=== PATIENT | female | born 1955 | race Caucasian/White ===

== ENCOUNTER 2024-12-04 10:59 | Outpatient (CLI) | payer MEDICARE, SELFPAY ==
--- NOTE | ~2024-12-04 | CT_ITS ---
EXAMINATION: CT LE LT wo con DATE: 12/04/2024 11:44 INDICATION: Unilateral primary osteoarthritis, left knee. TECHNIQUE: Computed tomography (CT) of the left lower limb was performed without intravenous contrast . Automated exposure control and iterative reconstruction technique were employed. The dose-length pr oduct was 1834.25 mGy-cm. COMPARISON: Left knee radiograph 11/19/24 FINDINGS: Alignment is normal. No fracture. There is mild left hip osteoarthritis. Left knee demonstr ates severe osteoarthritis of medial compartment and mild osteoarthritis of the lateral and patellofe moral compartments. There is a small knee joint effusion. IMPRESSION: 1. Severe left knee osteoarthritis. 2. Small left knee joint effusion. Reviewed, dictated and finalized at location A. STIGATIONS CHIEF
--- OUTSIDE RECORDS SUMMARY | 2024-12-04 11:03 | XMS_ITS ---
Author Name Joya Burgos Address [address], [place] [id number] [facility] Address [address], [place] [id number] Care Team Providers Care In [place] [employer] Name Role Phone Joya Burgos Primary Care Physician Tiago Cannon Unavailable Unavailable Joya Burgos Preferred Provider Unavailable Allergies and Adverse Reactions Name Reaction Notes NO KNOWN DRUG ALLERGIES Medications Active Name Start Date Estimated Comple tion Date SIG Comments multivitamin Oral Tablet jorge e 1 tablet by oral route once daily with food losartan 50 mg oral tablet t carl 1 tablet (50 mg) by oral route once daily hydrochlorothiazide 25 mg oral tablet magnesium 200 mg oral tablet vitamin U05-[id number] acid 500-400 mcg oral tablet Celebrex oral Name Start Date Expiration Date SIG Comments Contrave 8-90 mg oral tablet extended release take 2 tablets b y oral route 2 times per day in the morning and evening Prempro oral tablet 0.3-1.5 mg 07/24/2022 06/25/2023 Take 1 tablet by piper th once daily Discontinued Name Start Date Discontinued Date SIG Comment s Menostar 14 mcg/24 hr transdermal patch weekly 05/11/2015 apply 1 patch t o the lower abdomen area by transdermal route every 7 days Vitamin D3 5,000 unit oral tablet 07/14/2020 take 1 tablet by ora l route daily potassium 99 mg oral tablet 07/14/2020 Problem List Not available. Vital Signs Date Time BP-Sys(mm[Hg] BP-Lauryn(mm[Hg]) HR(bpm) RR(rpm) Temp WT HT HC BMI BSA BMI Percentile O2 Sat(%) 2021 10:24 :00 AM 126 mm[Hg] 74 mm[Hg] 206 lbs 65 in 34.2 798 kg/m 2 2.07 01 m2 08/08 9:38: 00 AM 142 mm[Hg] 76 mm[Hg] 199 lbs 65. 5 in 32.6 1 kg/m 2 2.04 m2 2020 9:59: 00 AM 124 mm[Hg] 68 mm[Hg] 199 lbs 65. 5 in 32.6 114 kg/m 2 2.04 24 m2 2019 8:56: 00 AM 148 mm[Hg] 78 mm[Hg] 198 lbs 65. 5 in 32.4 5 kg/m 2 2.04 m2 2019 1:25: 00 PM 128 mm[Hg] 74 mm[Hg] 200 lbs 65. 5 in 32.7 752 kg/m 2 2.04 76 m2 020 9:51: 00 AM 128 mm[Hg] 78 mm[Hg] 198 lbs 65. 5 in 32.4 5 kg/m 2 2.04 m2 2018 9:46: 00 AM 142 mm[Hg] 70 mm[Hg] 202 lbs 65. 5 in 33.1 03 kg/m 2 2.05 78 m2 2017 10:37 :00 AM 124 mm[Hg] 80 mm[Hg] 195 lbs 65. 5 in 31.9 6 kg/m 2 2.02 m2 2016 9:20: 00 AM 126 mm[Hg] 78 mm[Hg] 182 lbs 65. 5 in 29.8 255 kg/m 2 1.95 32 m2 2016 9:50: 00 AM 128 mm[Hg] 80 mm[Hg] 180 lbs 65. 5 in 29.5 0 kg/m 2 1.94 m2 2016 3:27: 00 PM 122 mm[Hg] 76 mm[Hg] 180 lbs 65. 5 in 29.4 977 kg/m 2 1.94 25 m2 2016 11:26 :00 AM 140 mm[Hg] 78 mm[Hg] 179 lbs 65. 5 in 29.3 3 kg/m 2 1.94 m2 016 10:22 :00 AM 130 mm[Hg] 80 mm[Hg] 187 lbs 65. 5 in 30.6 448 kg/m 2 1.97 99 m2 2014 10:32 :00 AM 148 mm[Hg] 82 mm[Hg] 191 lbs 015 1:35: 00 PM 118 mm[Hg] 84 mm[Hg] 193 lbs 65. 5 in 31.6 3 kg/m 2 2.01 14 m2 08/08 9:03: 00 AM 132 mm[Hg] 76 mm[Hg] 187 lbs 66 in 30.1 823 kg/m 2 1.99 m2 Social History Name Description Comments Alcohol Current some day rarely Caffeine Current some day occ Homemaker Heavy Amount of Exercise (4 or more times weekly ) Some college Tobacco Never smoker Denies alcohol abuse Denies drug use Denies illicit substance abuse No History Of MRSA No known infection risk Denies knowledge of exposure to hazardous substa nces Denies physical abuse by spouse/partner Denies emotional abuse by spouse/partner Don Did not serve History of Procedures Date Ordered Description Order Status 07/14/2020 12:00 AM MAMMOGRAM SCREENING Reviewed 07/16/2021 12:00 AM MAMMOGRAM SCREENING Reviewed 07/30/2021 12:00 AM DXA BONE DENSITY AXIAL Revie wed 08/02/2021 12:00 AM ASSAY OF PARATHORMONE Review ed 08/02/2021 12:00 AM VITAMIN D 25 HYDROXY Reviewe d 08/02/2021 12:00 AM ASSAY OF CALCIUM Reviewed 11/07/2021 12:00 AM VITAMIN D 25 HYDROXY Reviewed 09/11/2022 12:00 AM ULTRASOUND BREAST COMPLETE R eviewed 10/04/2013 11:55 AM SCREEN MAMMO DOC REV Reviewe d 02/28/2023 12:00 AM MRI BOTH BREASTS Reviewed 08/08/2011 12:00 AM CYTP C/V AUTO THIN LYR PREPJ SCR SYS PHYS Reviewed 10/07/2014 12:00 AM MAMMOGRAM SCREENING Reviewed 08/08/2011 12:00 AM ASSAY TEST FOR BLOOD FECAL R eviewed 05/11/2015 11:17 AM ASSAY TEST FOR BLOOD FECAL Re viewed 05/11/2015 12:00 AM Pap with HPV EOGA Reviewed 05/11/2015 12:00 AM CYTOPATH C/V AUTO FLUID REDO Reviewed 08/29/2011 3:56 PM SCREEN MAMMO DOC REV Reviewed 05/13/2016 12:00 AM ASSAY TEST FOR BLOOD FECAL Rev iewed 05/13/2016 12:00 AM CYTOPATH C/V AUTO FLUID REDO R eviewed 05/13/2016 12:00 AM HPV HIGH-RISK TYPES Reviewed 05/13/2016 12:00 AM HPV TYPES 16 & 18 ONLY Reviewe d 05/13/2016 11:00 AM ASSAY TEST FOR BLOOD FECAL Rev iewed 06/24/2016 12:00 AM MAMMOGRAM SCREENING Reviewed 09/01/2012 12:05 PM SCREEN MAMMO DOC REV Reviewe d 03/28/2017 12:00 AM Pessary EOGA Reviewed 03/28/2017 12:00 AM INSERT PESSARY/OTHER DEVICE R eviewed 07/04/2017 12:00 AM CYTOPATH C/V AUTO FLUID REDO Reviewed 07/04/2017 12:00 AM HPV HIGH-RISK TYPES Reviewed 07/04/2017 12:00 AM HPV TYPES 16 & 18 ONLY Review ed 07/04/2017 12:00 AM MAMMOGRAM SCREENING Reviewed 07/09/2017 12:00 AM ULTRASOUND BREAST COMPLETE Re viewed 07/10/2018 12:00 AM ASSAY TEST FOR BLOOD FECAL Re viewed 07/10/2018 12:00 AM CYTOPATH C/V AUTO FLUID REDO Reviewed 07/10/2018 12:00 AM HPV HIGH-RISK TYPES Reviewed 07/10/2018 12:00 AM HPV TYPES 16 & 18 ONLY Review ed 07/10/2018 12:00 AM MAMMOGRAM SCREENING Reviewed 07/12/2019 12:00 AM ASSAY TEST FOR BLOOD FECAL Re viewed 07/12/2019 12:00 AM CYTOPATH C/V AUTO FLUID REDO Reviewed 07/12/2019 12:00 AM HPV HIGH-RISK TYPES Reviewed 07/12/2019 12:00 AM HPV TYPES 16 & 18 ONLY Review ed 07/13/2019 12:00 AM MAMMOGRAM SCREENING Reviewed 01/18/2020 12:00 AM MAMMOGRAM SCREENING Reviewed 01/18/2020 12:00 AM MAMMO DIGITAL DIAGNOSTIC LEFT Reviewed 01/18/2020 12:00 AM Left breast ultrasound Reviewe d Results Summary Date and Description Results 05/11/2015 11:17 AM Hemoccult Stl Ql Neg ative 05/11/2015 12:41 PM LMP: NONE GIVENPREV. PAP: 08/08/2011PREV. BX: NONE GIVENHPV mRNA E6/E7 Not Detected 05/13/2016 11:00 AM Hemoccult Stl Ql Neg ative 05/13/2016 11:53 AM CLINICAL INFORMATION : NORMAL HXLMP: NONE GIVENPREV. PAP: 05/11/2015PREV. BX: NONE GIVENHPV mRNA E6/E7 Not Detected 07/04/2017 12:00 AM LMP: NONE GIVENPREV. PAP: [id number]. BX: NONE GIVENHPV mRNA E6/E7 Not Detected 07/10/2018 12:27 PM LMP: NONE GIVENPREV. PAP: 07/04/17PREV. BX: NONE GIVENHPV mRNA E6/E7 Not Detected 07/12/2019 10:20 AM LMP: NONE GIVENPREV. PAP: [id number]. BX: NONE GIVENHPV mRNA E6/E7 Not Detected History of Past Illness Name Date of Onset Comments Pap Smear 07/12/19 Normal -HPV rpt cotesting 5yrs Mammogram Screening 07/19/22 normal Fibrocystic changes of the breast 2002 2007 General medical examination; routine general medical examination at a health care facility Aug 08 2011 9:14AM Routine gynecological examination Aug 08 2011 9: 14AM Pap Smear Aug 08 2011 9:14AM Nevus, Non-neoplastic Aug 08 2011 9:14AM Mammogram Screening Aug 29 2011 3:56PM Mammogram Screening Sep 01 2012 12:05PM COVID-19 vaccine series completed 2020 Osteopenia 07/30/21 Mammogram Screening Oct 04 2013 11:55AM Breast Cancer Mammogram Screening Oct 07 2014 4:02PM Cystocele, midline Apr 20 2015 1:46PM Rectocele Apr 20 2015 1:46PM Uterovaginal Prolapse, Incomplete Apr 20 2015 1:4 6PM Well woman exam with routine gynecological exam May 11 2015 10:47AM Cervical cancer screening May 11 2015 10:47AM Menopausal syndrome May 11 2015 10:47AM Well woman exam with routine gynecological exam May 13 2016 10:33AM Cervical cancer screening May 13 2016 10:33AM Colon cancer screening May 13 2016 10:33AM Screening for rectal cancer May 13 2016 10:33AM Screening for HPV (human papillomavirus) May 13 2016 10:33AM Obesity (BMI 30-39.9) May 13 2016 10:33AM Uterine prolapse May 13 2016 10:33AM Mammogram Screening Jun 24 2016 11:17AM Uterovaginal prolapse Mar 27 2017 11:33AM Uterovaginal prolapse Mar 28 2017 3:27PM Pessary maintenance Apr 11 2017 9:55AM Well woman exam with routine gynecological exam Jul 04 2017 9:38AM Cervical cancer screening Jul 04 2017 9:38AM Screening for HPV (human papillomavirus) Jul 04 2017 9:38AM Overweight Jul 04 2017 9:38AM Mammogram Screening Jul 04 2017 4:18PM Mammogram Screening Jul 09 2017 9:12AM Well woman exam with routine gynecological exam Jul 10 2018 10:44AM Cervical cancer screening Jul 10 2018 10:44AM Screening for rectal cancer Jul 10 2018 10:44AM Screening for HPV (human papillomavirus) Jul 10 2018 10:44AM Obesity (BMI 30-39.9) Jul 10 2018 10:44AM Uterovaginal prolapse Jul 10 2018 10:44AM Menopausal syndrome Jul 10 2018 10:44AM Mammogram Screening Jul 10 2018 12:03PM Well woman exam with routine gynecological exam Jul 12 2019 9:52AM Cervical cancer screening Jul 12 2019 9:52AM Screening for rectal cancer Jul 12 2019 9:52AM Screening for HPV (human papillomavirus) Jul 12 2019 9:52AM Obesity (BMI 30-39.9) Jul 12 2019 9:52AM Hormone replacement therapy Jul 12 2019 9:52AM Cystocele with uterine prolapse Jul 12 2019 9:52 AM Mammogram Screening Jul 13 2019 10:47AM Left breast mass Jan 18 2020 9:57AM Diffuse cystic mastopathy of right breast Mar 23 2020 1:29PM Diffuse cystic mastopathy of left breast Mar 23 2020 1:29PM Well woman exam with routine gynecological exam Jul 14 2020 9:03AM Obesity (BMI 30-39.9) Jul 14 2020 9:03AM Cystocele, midline Jul 14 2020 9:03AM Mammogram Screening Jul 14 2020 3:01PM Well woman exam with routine gynecological exam Jul 16 2021 10:05AM Obesity (BMI 30-39.9) Jul 16 2021 10:05AM Cystocele, midline Jul 16 2021 10:05AM Mammogram Screening Jul 16 2021 1:45PM Screening -Dexa- Osteoporosi s/bone density Jul 30 2021 11:16AM Osteopenia Aug 08 2021 9:42AM Obesity Aug 08 2021 9:42AM Low vitamin D level Aug 08 2021 9:42AM Well woman exam with routine gynecological exam Jul 19 2022 10:31AM Obesity (BMI 30-39.9) Jul 19 2022 10:31AM Left Upper Breast mass in female Jul 19 2022 10:3 1AM Hormone replacement therapy Jul 19 2022 10:31AM Osteopenia Jul 19 2022 10:31AM Left breast lump Sep 11 2022 10:33AM Mammogram Screening Feb 28 2023 9:13AM Payers Insurance Name Company Name Plan Name Plan Number Policy Number Policy Group Number Start Date Medicare B Medicare B [id number] N/A Bcbs Bcbs [id number] N/A Bcbs Bcbs [id number] N/A Cigna Cigna [id number] N/A Aetna Aetna Life [id number] N/A History of Encounters Visit Date Visit Type Provider 07/19/2022 Office Joya Flores 08/08/2021 Office Joya Flores 07/16/2021 Office Joya Flores 07/14/2020 Office Joya Flores 03/23/2020 Office Ellie aj PA-C 01/18/2020 Office Ellie [facility]OD[facility] 07/12/2019 Office Joya Flores 07/10/2018 Office Joya Flores 07/04/2017 Office Joya Flores 04/11/2017 Office Joya Flores 03/28/2017 Office Joya Flores 03/27/2017 Office Joya Flores 05/13/2016 Office Joya Flores 05/11/2015 Office Joya Flores 04/20/2015 Office Joya Flores 08/08/2011 Office Jessica Dorman PA-C 08/06/[address] Tequila capps MD
--- OUTSIDE RECORDS SUMMARY | 2024-12-04 11:03 | XMS_ITS | Data Portability ---
Author Organization [facility], EFF_Historical Results Address [address] [place] [address] Assessment No assessment recorded. Plan of Treatment Reminders Order Date Submit Date Provider Last Modified By Organization Details Last Modified Time Details Appointments None recorded. Lab noninvasive colorectal cancer DNA + occult blood screening, QL, stool 2023 024 [facility] (Cologuard Orders Only), [address], [address], [place], [address], 18:27:00 Referral None recorded. Procedures None recorded. Surgeries None recorded. Imaging None recorded. Medication Orders None recorded. Patient TargetsNo targets recorded. Patient InstructionsNo instructions recorded. Reason for Referral None Reported. Results Created Date Observation Date Name Description Value Unit Range Abnormal Flag Note LastModifiedBy Organization Detail LastModifiedTime Result Notes None recorded. Procedures Surgical History Date Name Laterality Status Provider Name and Address Organization Details Recorded Time 05/19/20 24 Date of Last Mammogram completed Brianne Terry [facility] 05/19/2024 15:17:09 05/13/20 23 lumpectomy of right breast completed [facility] 07/23/2024 09:53:26 07/30/20 21 dual energy X-ray absorptiometry completed [facility] 07/20/2024 11:56:06 07/12/20 19 Date of Last Pap Smear completed [facility] 07/20/2024 12:19:03 10/13/19 10 Colonoscopy completed [facility] 07/20/2024 11:55:32 Imaging Results None recorded. Procedure Notes None recorded. Medical Equipment None Reported. Allergies No known drug allergies Medications Name Sig Start Date Stop Date Status Note LastModified by Organization Details LastModified Time celecoxib 200 mg capsule active Not Available Not Available N ot Available hydrocodone 5 mg-acetaminop hen 325 mg tablet active Not Available Not Available Not Available prednisone 20 mg tablet 07/22 completed Not Available Not Available Not Available amlodipine 5 mg tablet active Not Available Not Available No t Available tramadol 50 mg tablet 07/22 completed Not Available Not Available Not Available exemestane 25 mg tablet 07/22 completed Not Available Not Available Not Available Fosamax 70 mg tablet Take 1 tablet every week by oral route. active Not Available Not Available No t Available hydrochloroth iazide 25 mg tablet active Not Available Not Available Not Available losartan 100 mg tablet active Not Available Not Available No t Available mometasone 0.1 % topical cream 07/22 completed Not Available Not Available Not Available amoxicillin 875 mg-potassium clavulanate 125 mg tablet 07/22 completed Not Available Not Available Not Available cyclobenzapri ne 5 mg tablet active Not Available Not Available Not Available tamoxifen active Not Available Not Lexy ilable Not Available levocetirizin e 5 mg tablet 07/22 completed Not Available Not Available Not Available calcium 1,000 mg (as carbonate)-vi tamin D3 20 mcg (800 unit) tablet Take by oral route. active Not Available Not Available No t Available Vitals Date Recorded Body height Body mass index (BMI) Body weight Systolic blood pressure Diastolic blood pressure Provider Name and Address Organization Details Last Updated DateTime 07/23/2024 165.1 cm 35.8 kg/m2 75548.36 g 122 mm[Hg] 78 mm[Hg] Jonathan Mccon[facility] 09:49:30 Social History Question Answer Notes LastModified by Organizat ion Details LastModified Time Tobacco Smoking Status Never Smoker Jonathan [facility] 07/20/2024 11:56:36 What Is Your Level Of Alcohol Consumption? Occasional [email or web address] Information not available 07/20/2024 What Is Your Level Of Caffeine Consumption? Occasional [email or web address] Information not available 07/20/2024 Are You Currently Employed? No [email or web address] Information not available 07/23/2024 What Type Of Diet Are You Following? REGULAR [email or web address] Information not available 07/23/2024 What Is Your Occupation? Retired [email or web address] Information not available 07/23/2024 Have There Been Any Changes To Your Family Or Social Situation? No [email or web address] Information no t available 07/23/2024 What Is The Highest Level Of School You Have Completed Or The Highest Degree You Have Received? Some College [email or web address] Information not available 07/20/2024 How Do You Identify Yourself? Heterosexual [email or web address] Information not available 07/23/2024 What Is Your Ethnicity? Information not available 07/23/2024 What Is Your Relationship Status? [email or web address] Information not available 07/20/2024 Are There Any Smokers In Your House? No [email or web address] Information not available 07/23/2024 Do You Use Any Illicit Or Recreational Drugs? No [email or web address] Information not available 07/20/2024 Do You Or Have You Ever Used Any Other Forms Of Tobacco Or Nicotine? No [email or web address] Information not available 07/20/2024 Sex: Female Functional Status Question Answer Note LastModified by Organization D etails LastModified Time What is your exercise level? Heavy Information not available 07/20/2024 Mental Status None recorded. Family History Relationship Description Onset Age of this Age Resolved Age Notes LastModified by Organization Details LastModified Time Sister Family history of breast cancer [email or web address] Not available 07/20 11:57:59 Maternal Aunt Family history of breast cancer [email or web address] Not available 07/20 11:57:59 Father Family history of diabetes mellitus [email or web address] Not available 07/20 11:58:23 Father Family history of coronary arterioscler osis [email or web address] Not available 07/20 12:01:14 Medical History Condition Response Allergies (Food, seasonal, environmental ) N Other Y Thyroid Disease N Blood Transfusion N Cancer Breast Y Lung Disease N Depression N Gestational Diabetes N Anxiety Disorder N Cancer Other N Arthritis N Acid Reflux (GERD) N Stroke N Endometriosis N High Cholesterol N Neurologic Disorder N Liver Disease N Fibromyalgia N Deep Vein Thrombosis (DVT) or Pulmonary Embolism (PE) N Kidney Disease N Autoimmune Disease N Cancer Endometrial N Migraines N GI Problems N Hematologic (Blood) Disorder N Eating Disorder N Anemia N Psychiatric Disorder N Thrombophilia N Cancer Colon N Diabetes N Cancer Uterine N Asthma N Polycystic Ovary Syndrome (PCOS) N Defects N Cancer Ovarian N Heart Disease N Hypertension N Osteoporosis N Gynecological History Statement/Question Response Abnormal Pap N If Post Menopausal, Age at Menopause 54 Date of Last Colonoscopy Date of Last Mammogram 05/19/2024 Sexually Active? Y Post Menopausal Bleeding N STIs/STDs N HPV Vaccine N Date of Last Pap Smear 07/12/2019 Current Control Method Partner Vas ectomy Date of Last DEXA 07/30/2021 Hormone Replacement Therapy N Obstetrics History GPAL:G 2 P 2 0 0 2 Type Value Full Term 2 Living 2 Total 2 Past Encounters Encounter ID Performer Location Encounter Start Date Encounter Closed Date Diagnosis/Indication Diagnosis SNOMED-CT Code Diagnosis ICD10 Code Diagnosis Note [id number] EITAN GUTIERREZ MD [facility] [address] [place] [address] 07/23/2024 09:37:41 07/23/2024 10:56:14 Screening for malignant neoplasm of colon 637503196 Z12.11 Routine gy necologic examination done 0491677091 9101 Z01.419 no medicine aide bleedingno oral HRT since contraindi catedpap not needed 2/2 age/hx and doesn't meet high risk criteriaPC P: Dr. Chely butcher routine exam w/pcpvacci mercedes: s/p covid with one booster, s/p flu and shingles, considerin g pneumonia and RSV vaccinesso cial: to Don; no D.Vl, homemaker, two grown childrenre commend monthly SBEs: does dorecommen d yearly mammogram: done 4decl sha rectalcolo noscopy: done in 2009 and will now do cologuard; order sentno smoking/va ping/THC/n or illicit drugsencou rage adequate calcium/vi t D and weight bearing exerciseen courage sunscreen and seatbelt use, avoid tanning bedsencour age weight loss with healthy diet and exerciseRT C: in two years or sooner prn. History of malignant neoplasm of breast 077964184 Z85.3 lump found on previous annual exam. S/P lumpectomy on right with radiation. Now seeing Dr. Moyer. previous medication had ill side effects so he started her on tamoxifen yesterday. . Mammogram done this May was wnl Osteopenia [id number] M85 .80 Dr. Moyer is performing DEXA scans and has her on fosfamax. She is taking calcium and vit. D. Also, encourage weight bearing exercise. Family his tory of breast cancer 639799383 Z80.3 pt's sister and maternal aunt have breast cancer; Pt. has been tested for genetic component to her breast cancer and testing was negative. Obese class II [id number] 1 46746 E66.812 has gained 9# since last visit; mobility limited by bone on bone in her knee; she gets injections in her kneeencour aged weight loss with healthy diet and exercisept . may address weight loss drugs with her pcp Cystocele 789197268 N81. 10 pt. states it is asymptomat ic and declines interventi on Skin lesion 77709772 L98 .9 patient has multiple benign appearing skin lesions predominan tly over her trunk; she sees derm every 6 months. Health Concerns Section Related Observation LastModified by Organization Detai ls LastModified Time None Recorded Concern Status LastModified by Organization Details LastModified Time None Recorded Advance Directives Directive None Recorded Payers Encounter Date Sequence Insurance Name Policy Number Policy Tran Covered Member ID Tran Member ID Guarantor Name 07/23/2024 2 [place] [id number] Ana Lilia Beckham [id number] Ana Lilia Beckham 07/23/2024 1 [place] Ana Lilia Beckham [id number] Ana Lilia Beckham Notes Date Note Type Note Provider Name and Address Organization Details Recorded Time 07/23/2024 text/html Annual GYNReported bypatient.History :obstetric history: G2 T__ P__ A__ L__ (2); date of last Pap test (07/12/2019 normal/-HR HPV); family history of cancer (breast-Maternal Aunt, sister, and Patient) Urinary symptoms:Postmeno pausal Vulva:no genital lesion Vagina:normal vaginal discharge Breast:no breast pain; no breast lump; no nipple discharge Current Contraception:jaxon crawford had vasectomy Sexual complaints:no sexual complaints; no pain during intercourse; normal libido Menopausal Symptoms:no menopausal symptoms; normal vaginal lubrication Psychological symptoms:no depression; no anxiety; no PMDD Onset of sexual activity before age 16? {{Yes No*}} Five or more sexual partners in lifetime? {{Yes No*}} History of STI (including HPV)? {{Yes No*}} Have had 3 or more abnormal paps in the past 7 years: {{Yes No*}} Mother took SHILA(diethylstilbe strol ) during with her? {{Yes No*}} If answering yes to any questions use the code Z91.89 (high risk for cervical cancer) and continue to screen with annual pap EITAN GUTIERREZ MD [address] [place] [address], [phone], [facility] 07/23/2024 10:38:10 OBGyn Episode Ob Episode Information Episode Created Date Number of Fetuses Patient Bloodtype Patient rh Status Prepregnancy Weight lbs Domestic Partner Domestic Partner Phone Father Name Vp Design Status 07/20/20 24 1 CLOSED Fetus Data First Name Last Name Admitted to NICU Weight (g) Sex Living Outcome Pediatric Complications Fetus ID Race Codes Race Delivery Type 22991.3 11881 M Full Term [id number] Vaginal Yamil Calculation Initial Yamil Date Initial Exam Date Initial Exam Provider Initial Ultrasound Date Last Menstrual Period Date Ultra Sound Weeks Gestation 0 Eighteen To Twenty Week Yamil Update Ultra Sound Date Fundal Height At Umbil Quickening Date Ultra Sound Latest Weeks Gestation Final Yamil Confirmed By Final Yamil Confirmed Date Final Yamil Date Ultra Sound Latest Days Gestation 0 0 Menstrual History Last Menstrual Date Menses Monthly On Bcp Conception Prior Menses Frequency Hcg Plus Date Menarche Onset Age Delivery Information Delivery Date Delivery Type Labor Anesthesia Weeks Gestation Incision Type Labor Labor Length Hrs Delivered By Post Complications Tubal Sterilization Discharge Date Comments 4 Regional- idural 40 false Discharge Information Feeding Method Contraceptive Method Maternal HG B and HCT Levels Ob Episode Information Episode Created Date Number of Fetuses Patient Bloodtype Patient rh Status Prepregnancy Weight lbs Domestic Partner Domestic Partner Phone Father Name Vp Design Status 07/20/20 24 1 CLOSED Fetus Data First Name Last Name Admitted to NICU Weight (g) Sex Living Outcome Pediatric Complications Fetus ID Race Codes Race Delivery Type 4139.02 7 M Full Term [id number] Vaginal Yamil Calculation Initial Yamil Date Initial Exam Date Initial Exam Provider Initial Ultrasound Date Last Menstrual Period Date Ultra Sound Weeks Gestation 0 Eighteen To Twenty Week Yamil Update Ultra Sound Date Fundal Height At Umbil Quickening Date Ultra Sound Latest Weeks Gestation Final Yamil Confirmed By Final Yamil Confirmed Date Final Yamil Date Ultra Sound Latest Days Gestation 0 0 Menstrual History Last Menstrual Date Menses Monthly On Bcp Conception Prior Menses Frequency Hcg Plus Date Menarche Onset Age Delivery Information Delivery Date Delivery Type Labor Anesthesia Weeks Gestation Incision Type Labor Labor Length Hrs Delivered By Post Complications Tubal Sterilization Discharge Date Comments 8 Regional- idural 40 false [place] Discharge Information Feeding Method Contraceptive Method Maternal HG B and HCT Levels
--- OUTSIDE RECORDS SUMMARY | 2024-12-04 11:03 | XMS_ITS | Clinical Summary ---
Author Organization [facility] Address [facility] [place] [address] Care Team Providers Care Barking Machine Feeder Name Role Phone Tiago Mason MD Primary Care Provider [phone] Allergies Active Allergy Reactions Criticality Noted Date Comments Levofloxacin Rash Low 05/21/2023 Medications hydroCHLOROthia zide (HYDRODIURIL) 25 MG tabletIndicatio ns:Hypertension Take 1 tablet (25 mg total) by mouth every morning. Indications: High Blood Pressure Disorder 03/18/2023 Active losartan (COZAAR) 100 MG tabletIndicatio ns:Hypertension Take 1 tablet (100 mg total) by mouth daily. Indications: High Blood Pressure Disorder 03/05/2023 Active celecoxib (CELEBREX) 200 MG capsule Take 1 capsule (200 mg total) by mouth daily. Active amLODIPine (NORVASC) 5 MG tabletIndicatio ns:Hypertension Take 1 tablet (5 mg total) by mouth daily. Indications: High Blood Pressure Disorder Active TURMERIC OR Take 1,000 mg by mouth daily. Active vitamin B-12 (CYANOCOBALAMIN ) (CYANOCOBALAMIN ) 1000 mcg tablet Take 1 tablet (1,000 mcg total) by mouth daily. Active Multiple Vitamins-Minera ls (MULTIVITAMIN ADULTS 50+ OR) Take 1 tablet by mouth daily. Active Calcium Carbonate Antacid 600 MG Chew Tab Chew 1 tablet by mouth daily. Active magnesium oxide (MAG-OX) 250 MG tablet Take 1 tablet (250 mg total) by mouth daily. Active Cholecalciferol (VITAMIN D3) 50 MCG (2000 UT) Cap Take 1 capsule by mouth daily. Active acetaminophen (TYLENOL) 325 MG tablet Take 2 tablets (650 mg total) by mouth every 4 (four) hours as needed for Pain. For Mild Pain or Fever 05/29/2023 Active Active Problems Problem Noted Date Diagnosed Date Invasive lobular carcinoma o f breast in female (CMS/HCC HHS/HCC) 07/09/2023 Abnormal magnetic resonance imaging of right alycia ast 05/01/2023 Family History Medical History Relation Comments Prostate Cancer Brother COPD Father Heart Disease Father Cancer Maternal Aunt ovarian COPD Mother Cancer Paternal Aunt ?lung Breast Cancer Sister Relation Status Comments Brother Alive Father Maternal Aunt Mother Paternal Aunt Sister Alive Social History Tobacco Use Types Packs/Day Years Used Date Smoking Tobacco: Never Smokeless Tobacco: Never Alcohol Use Standard Drinks/Week Comments Yes 0 (1 standard drink = 0.6 oz pur e alcohol) SOCIAL Comments No Sex and Gender Information Value Date Recorded Sex Assigned at Not on file Legal Sex Female 8:00 PM CDT Gender Identity Not on file Sexual Orientation Not on file Last Filed Vital Signs Vital Sign Reading Time Taken Comments Blood Pressure 139/75 07/09/2023 8:21 AM CDT Pulse 76 07/09/2023 8:21 AM CDT Temperature 36.8 C (98.2 F) 07/09/2023 8:21 AM CDT Respiratory Rate 16 05/29/2023 1:36 PM CDT Oxygen Saturation 99% 07/09/2023 8:21 AM CDT Inhaled Oxygen Concentration - - Weight 92.8 kg (204 lb 9.4 oz) 05/29/2023 6:59 A M CDT Height 167.6 cm (5' 6 ) 05/23/2023 8:33 AM CDT Body Mass Index 33.02 05/23/2023 8:33 AM CDT Plan of Treatment Upcoming Encounters Date Type Department Care Team (Late st Contact Info) Description 05/19/2025 9:15 AM CDT Appointment [facility] [address] [place] [address] Tiago Mason MD [address] [place], [place] [id number] Health Maintenance Due Date Last Done Comments Colorectal Cancer Screening Colonoscopy (10 Years) 1955 Hepatitis C 1974 DTaP, Tdap and Td Vaccines (1 - Tdap) 1975 Annual Medicare Wellness Visit 2021 Pneumococcal Vaccine: 65+ Years (1 of 1 - PCV) 2021 COVID-19 Vaccine (1 - season) 2024 Influenza Adult (#1) 2024 08/13/2021, 07/27/2019, 07/28/2018 Mammogram Screening 05/19/2026 05/19/2024, 03/27/2023, 07/19/2022, Additional history exists RSV Immunization or 60+ Years (1 - 1-dose 75+ series) 2031 Zoster Vaccines Completed 05/13/2018, 02/24/2018 Dexa Scan (General) Completed 08/01/2023, 08/01/2023, 07/30/2021 Meningococcal B Vaccine Aged Out No l onger eligible based on patient's age to complete this topic Meningococcal Vaccine Aged Out No ronny shelly eligible based on patient's age to complete this topic RSV Immunizations Under 20 Months Aged Out No longer eligible based on patient's age to complete this topic Procedures Procedure Name Priority Date/Time Associated Diagnosis Comments MG SCREENING W POLO DANG DIGI Routine 05/19/2024 8:22 AM CDT Visit for screening mammogram BONE DENSITY/DEXA Routine 08/01/2023 10: 10 AM CDT Post-menopause Osteopenia determined by x-ray from Last 3 Months or Most Recently Relevant to Health Maintenance Results * MG SCREENING W POLO DANG DIGI (05/19/2024 8:22 AM CDT) Anatomical Region Laterality Modality Breast Bilateral Mammography 05/19/2024 12:5 2 PM CDT Impressions 05/19/2024 12:54 PM CDT IMPRESSION: No suspicious mammographic findings. Recommendation: 1. Routine Screening, Bilateral Assessment: ACR BI-RADS 2 - BENIGN FINDING(S) Ordered By: JOYA BURGOS Interpreted By: Sergey Esparza MD, 05/19/2024 12:52 PM Narrative 05/19/2024 12:54 PM CDT Examination: Screening bilateral mammogram Exam Date: 05/19/2024 8:22 AM Clinical history: Screening. History of right breast malignancy. Family history of breast malignancy. Comparison: Previous studies performed July 2022. Technique: Digital screening mammography of both breasts was performed. Breast tomosynthesis acquisitions were obtained and reviewed. This study was read with the assistance of a computer-aided detection system. Tissue density: The breast tissue is heterogeneously dense, which may obscure small masses. Findings: No suspicious masses, malignant appearing calcifications, skin thickening or other abnormalities are present. Posttreatment changes in the right breast. There are no new densities. Benign findings with computer-assisted software. Scattered benign calcifications.. Considering the patient's history and the degree of the breast density recommend continued annual imaging surveillance with MRI as supplemental screening in addition to mammogram. us Joya Burgos MD MAMMO Final Result * BONE DENSITY/DEXA (08/01/2023 10:10 AM CDT) Anatomical Region Laterality Modality Bone Bone Density 08/01/2023 10:1 9 AM CDT Impressions 08/01/2023 10:22 AM CDT Impression: BMD measured at both femoral necks and right total hip at WHO category level of osteopenia. BMD measured at left total hip and AP lumbar spine at level of normal. Ordered By: DARRIN MOYER Interpreted By: Harvey Calvillo MD, 08/01/2023 10:19 AM Narrative 08/01/2023 10:22 AM CDT Examination: DEXA Bone densitometry EXAM DATE: 08/01/2023 9:59 AM Clinical history: Postmenopausal. Calcium supplementation. Vitamin D use. History of hormone replacement therapy. Dairy product consumption. Weight-bearing exercise. Technique: DEXA bone minimal density evaluation was performed in the AP projection over the lumbar spine and over both hips in the AP projection utilizing standard imaging techniques. Assessment: The BMD measured at the AP spine L1-L4 is 1.005 g/cm2 with a T-score of -0.4 and a Z-Score of 1.5. Bone density is up to 10% below young normal. This patient is considered normal according to the World Health Organization (WHO) criteria. Fracture risk is low. The BMD measured at the AP lumbar spine has decreased 0.020 g/sq cm since study 07/30/2021. The BMD measured at the femur total left is 0.818 g/cm2 with a T-score of -1.0 and a Z-Score of 0.3. Bone density is up to 10% below young normal. This patient is considered normal according to the World Health Organization (WHO) criteria. Fracture risk is low. The BMD measured at the left total hip has decreased 0.008 g/sq cm since study 07/30/2021. The BMD measured at the left femoral neck is 0.650 g/sq cm resulting in a T score of -1.8 and a Z score of -0.2, values at the WHO category level of osteopenia. The BMD measured at the femur total right is 0.807 g/cm2 with a T-score of -1.1 and aZ-Score of 0.2. The patient is considered osteopenic according to World Health Organization (WHO) criteria. Bone density is between 10 and 25% below young normal. Fracture risk is moderate. Treatment is advised. The BMD measured at the right total hip has increased 0.007 g/sq cm since study 07/30/2021. The BMD measured at the right femoral neck is 0.638 g/sq cm resulting in a T score of -1.9 and a Z score of -0.3, values at the WHO category level of osteopenia. FRAX results: 10 year probability of major osteoporotic fracture 9.9% and of hip fracture 1.4%. Recommendations: All patients should ensure an adequate intake of dietary calcium and vitamin D. The NOF recommend adults under the age of 50 need 1000 mg of calcium and 400-800 IU of vitamin D daily. Effective therapy for the prevention and treatment of osteoporosis include biphosphonates. Follow-up: People with diagnosed cases of osteoporosis or at high risk for fracture should have regular bone mineral density test. For patients eligible for Medicare, routine testing is allowed once every 2 years. Testing frequency can be increased to one year for patients who have rapidly progressing disease, those who are receiving or discontinuing medical therapy to restore bone mass, or have additional risk factors. Based on these results, a followup exam is recommended in no earlier than 2 years for routine follow-up. As early as 1 year to assess efficacy of new medication therapy for treatment of osteoporosis. Procedure Note Harvey Calvillo MD - 08/01/2023 Examination: DEXA Bone densitometry EXAM DATE: 08/01/2023 9:59 AM Clinical history: Postmenopausal. Calcium supplementation. Vitamin D use.History of hormone replacement therapy. Dairy product consumption.Weight-bearing exercise. Technique: DEXA bone minimal density evaluation was performed in the APprojection over the lumbar spine and over both hips in the AP projectionutilizing standard imaging techniques. Assessment: The BMD measured at the AP spine L1-L4 is 1.005 g/cm2 with a T-score of-0.4 and a Z-Score of 1.5. Bone density is up to 10% below youngnormal. This patient is considered normal according to the World HealthOrganization (WHO) criteria. Fracture risk is low. The BMD measured at the AP lumbar spine has decreased 0.020 g/sq cm sincestudy 07/30/2021. The BMD measured at the femur total left is 0.818 g/cm2 with a T-score of-1.0 and a Z-Score of 0.3. Bone density is up to 10% below youngnormal. This patient is considered normal according to the World HealthOrganization (WHO) criteria. Fracture risk is low. The BMD measured at the left total hip has decreased 0.008 g/sq cm sincestudy 07/30/2021. The BMD measured at the left femoral neck is 0.650 g/sq cm resulting in aT score of -1.8 and a Z score of -0.2, values at the WHO category level ofosteopenia. The BMD measured at the femur total right is 0.807 g/cm2 with a T-score of-1.1 and aZ-Score of 0.2. The patient is considered osteopenicaccording to World Health Organization (WHO) criteria. Bone density isbetween 10 and 25% below young normal. Fracture risk is moderate.Treatment is advised. The BMD measured at the right total hip has increased 0.007 g/sq cm sincestudy 07/30/2021. The BMD measured at the right femoral neck is 0.638 g/sq cm resulting in aT score of -1.9 and a Z score of -0.3, values at the WHO category level ofosteopenia. FRAX results: 10 year probability of major osteoporotic fracture 9.9% andof hip fracture 1.4%. Recommendations: All patients should ensure an adequate intake of dietary calcium andvitamin D. The NOF recommend adults under the age of 50 need 1000 mg ofcalcium and 400-800 IU of vitamin D daily. Effective therapy for theprevention and treatment of osteoporosis include biphosphonates. Follow-up: People with diagnosed cases of osteoporosis or at high risk for fractureshould have regular bone mineral density test. For patients eligible forMedicare, routine testing is allowed once every 2 years. Testing frequencycan be increased to one year for patients who have rapidly progressingdisease, those who are receiving or discontinuing medical therapy torestore bone mass, or have additional risk factors. Based on these results, a followup exam is recommended in no earlier than2 years for routine follow-up. As early as 1 year to assess efficacy ofnew medication therapy for treatment of osteoporosis. Impression: BMD measured at both femoral necks and right total hip at WHO categorylevel of osteopenia. BMD measured at left total hip and AP lumbar spine at level of normal. Ordered By: DARRIN MOYER Interpreted By: Harvey Calvillo MD, 08/01/2023 10:19 AM Darrin Moyer MD DEXA Final Result from Last 3 Months or Most Recently Relevant to Health Maintenance Insurance MEDICARE Member Subscriber Plan / Payer (Ef fective 2022-Present) Name:Ana Lilia Beckham Relation to Subscriber:Self Name:Ana Lilia Beckham Payer ID:Not on file Group ID:Not on file Type:Indemnity Address: ATTN CLAIMS [address] [place] [address] [place] [address] MEDICARE [facility] Care Teams Barking Machine Feeder Relationship Specialty Start Date End Date Tiago Mason MD [address] [place] [address] PCP - General INTERNAL MEDICINE 07/13/19
--- OUTSIDE RECORDS SUMMARY | 2024-12-04 11:03 | XMS_ITS | Encounter Summary ---
Author Organization [facility] Address [address] [place] [address] Phone Care Team Providers Care Director Investment Banking Name Role Phone Tiago Mason MD Primary Care Provider [phone] Darrin Moyer MD Unavailable Reason for Visit * Reason Onset Date Comments Melatonin? 01/23/2024 Encounter Details Date Type Department Care Team (Late st Contact Info) Description 01/23/[address] [place] [address] Darrin Moyer MD [address] [place] [address] [place] [address] Melatonin? Social History Tobacco Use Types Packs/Day Years Used Date Smoking Tobacco: Never Passive Smoke Exposure: Current Smokeless Tobacco: Never Alcohol Use Standard Drinks/Week Comments Not Currently 0 (1 standard drink = 0.6 oz pur e alcohol) Comments No Sex and Gender Information Value Date Recorded Sex Assigned at Not on file Legal Sex Female 11:05 AM CDT Gender Identity Not on file Sexual Orientation Not on file documented as of this encounter Miscellaneous Notes * Telephone Encounter - Darrin Moyer MD - 01/24/2024 11:31 AM CDT I agree that Melatonin is safe to use. * Telephone Encounter - Racquel Hamilton LPN - 01/23/2024 2:29 PM CDT Edna was seen for an appt yesterday. She understood she is to stop taking OTC black cohash because of the hormones it contains. She asks if she can still use melatonin at bedtime for insomnia. I told her the Melatonin was fine to take. Please advise if you do not agree with this. documented in this encounter Plan of Treatment Upcoming Encounters Date Type Department Care Team (Late st Contact Info) Description 01/20/2025 1:30 PM CDT Office Visit [facility] [address] [place] [address] Darrin Moyer MD [address] [place] [address] [address] [place], [place] [id number] documented as of this encounter Visit Diagnoses Not on filedocumented in this encounter Care Teams Director Investment Banking Relationship Specialty Start Date End Date Tiago Mason MD [address] [place] [id number] PCP - General Internal Medicine 04/10/23 Darrin Moyer MD [address] [place] [address] [place] [id number] Consulting Physician Oncology 06/17/23 documented as of this encounter
--- OUTSIDE RECORDS SUMMARY | 2024-12-04 11:03 | XMS_ITS | Encounter Summary ---
Author Organization [facility] Address [address] [place] [address] Phone Care Team Providers Care Utilization Management Nurse Name Role Phone Tiago Mason MD Primary Care Provider [phone] Darrin Moyer MD Unavailable Reason for Visit * Reason Onset Date Comments Leg Pain 04/12/2024 Encounter Details Date Type Department Care Team (Late st Contact Info) Description 04/12/[address] [place] [address] Darrin Moyer MD [address] [place] [address] [place] [address] Leg Pain Social History Tobacco Use Types Packs/Day Years [...] encounter Miscellaneous Notes * Telephone Encounter - Racquel Hamilton LPN - 04/14/2024 9:37 AM CDT I called Ana Lilia with Dr Moyer's recommendations. She voiced understanding. She stopped the Examestane last night. She will keep her f/u appt scheduled here on 04/22/24. * Telephone Encounter - Darrin Moyer MD - 04/13/2024 10:51 PM CDT The breast cancer pill Exemestane can cause water retention or leg swelling. I recommend that she stop her Exemestane for now -- update us on how she is doing in the next 2 to 3 weeks. * Telephone Encounter - Racquel Hamilton LPN - 04/13/2024 10:23 AM CDT I called Ana Lilia. She states she had a venous doppler last week and it was negative for DVT. She is seeing therapy and they do not feel she has lymphedema. She is asking if her sx could be related to her Examestane? * Telephone Encounter - Darrin Moyer MD - 04/12/2024 8:06 PM CDT I strongly recommend that she go to her local ER for evaluation of the left leg pain --- need to r/o a blood clot. Thanks * Telephone Encounter - Racquel Hamilton LPN - 04/12/2024 4:15 PM CDT Ana Lilia reports pain in her entire left leg including behind her knee. She denies swelling or redness. She understood from a past visit that she has lymphedema in that leg. She states she saw a lymphedema specialist and was advised she does not have lymphedema. She is using 3 norco per day due to thepain. She is asking for your input. documented in this encounter Plan of Treatment Upcoming Encounters Date Type Department Care Team (Late st Contact Info) Description 01/20/2025 1:30 PM CDT Office Visit [facility] [address] [place] [address] Darrin Moyer MD [address] [place] [address] [place], [place] [id number] documented as of this encounter Visit Diagnoses Not on filedocumented in this encounter Care Teams Utilization Management Nurse Relationship Specialty Start Date End Date Tiago Mason MD [address] [place] [id number] PCP - General Internal Medicine 04/10/23 Darrin Moyer MD [address] [place] [address] [place], [place] [address] Consulting Physician Oncology 06/17/23 documented as of this encounter
--- OUTSIDE RECORDS SUMMARY | 2024-12-04 11:03 | XMS_ITS | Clinical Summary ---
Author Organization [facility] Address [address] [place] [address] Phone Care Team Providers Care Cutter Down Name Role Phone Tiago Mason MD Primary Care Provider [phone] Darrin Moyer MD Unavailable Allergies Active Allergy Reactions Criticality Noted Date Comments Levofloxacin Itching 04/10/2023 Other-Environmental Allergen (Not Found In Search) Other (see Comments) 04/10/2023 Hay fever Medications celecoxib (CeleBREX) 200 MG Capsule Take 200 mg by mouth daily. Active losartan (COZAAR) 100 MG Tablet Take 100 mg by mouth daily. 03/05/2023 Active hydroCHLOROthia zide 25 MG Tablet Take 25 mg by mouth daily. 03/18/2023 Active amLODIPine (NORVASC) 5 MG Tablet Take 5 mg by mouth daily. Active POTASSIUM PO Take 1 Tablet by mouth daily. Active Multivitamin-Mi nerals Tablet Take 1 Tablet by mouth daily. Active acetaminophen (TYLENOL) 325 MG Tablet Take 650 mg by mouth. 05/29/2023 Active Calcium Carbonate Antacid 600 MG Chewable Tablet Take 1 Tablet by mouth. Active Cholecalciferol 2000 UNIT Capsule Take 1 Capsule by mouth daily. Active Cyanocobalamin (VITAMIN B-12) 1000 MCG Tablet Take 1,000 mcg by mouth. Active magnesium oxide 250 MG Tablet Take 250 mg by mouth. Active alendronate (FOSAMAX) 70 MG Tablet Take 1 Tablet by mouth every 7 days. 12 Tablet 6 10/23/2023 Active tamoxifen citrate 20 MG Tablet Take 1 Tablet by mouth daily 60 Tablet 6 07/22/2024 Active Active Problems Problem Noted Date Diagnosed Date Malignant neoplasm of upper- inner quadrant of right breast in female, estrogen receptor positive 07/23/2023 Abnormal magnetic resonance imaging of right alycia ast 05/01/2023 Encounters Date Type Department Care Team Description 10/28/2024 1:45 PM GLOVE PARTS INSPECTOR Office Visit [facility] [address] [place] [id number] Margarette Olmos, WARP KNITTING MACHINE OPERATOR, WATERFRONT DIRECTOR Malignant neoplasm of upper-inner quadrant of right breast in female, estrogen receptor positive (HCC) (Primary Dx); Family history of breast cancer gene mutation in first degree relative; Family history of prostate cancer; Osteopenia determined by x-ray; Hot flash due to medication; Aromatase inhibitor-associated arthralgia; Left knee pain, unspecified chronicity; Dense breast tissue on mammogram, unspecified type 10/28/2024 Travel from Last 3 Months Immunizations Immunization Administration Dates Next Due Influenza Vaccine, Quadrivalent, PF 08/13/2021,1 ,07/28/2018 Influenza, High-dose, Quadrivalent 08/28/2023,,08/07/2020 Influenza, high-dose, trivalent, PF 07/21/2024 Zoster Vaccine Recombinant 05/13/2018,02/24/2018 Family History Medical History Relation Name Comments Chronic Obstructive Pulmonary Disease Father Diabetes Father Dementia Mother Heart Disease Mother Relation Name Status Comments Brother Alive Child 1 Alive Child 2 Alive Father Mother Sister Alive Social History Tobacco Use Types Packs/Day Years Used Date Smoking Tobacco: Never Passive Smoke Exposure: Current Smokeless Tobacco: Never Tobacco Cessation:Counseling Given: Not Answered Alcohol Use Standard Drinks/Week Comments Not Currently 0 (1 standard drink = 0.6 oz pur e alcohol) Comments No Sex and Gender Information Value Date Recorded Sex Assigned at Not on file Legal Sex Female 11:05 AM CDT Gender Identity Not on file Sexual Orientation Not on file Last Filed Vital Signs Vital Sign Reading Time Taken Comments Blood Pressure 152/78 10/28/2024 1:49 PM GLOVE PARTS INSPECTOR Pulse 88 10/28/2024 1:49 PM GLOVE PARTS INSPECTOR Temperature 36.8 C (98.2 F) 10/28/2024 1:49 PM GLOVE PARTS INSPECTOR Respiratory Rate 16 10/28/2024 1:49 PM GLOVE PARTS INSPECTOR Oxygen Saturation 99% 10/28/2024 1:49 PM GLOVE PARTS INSPECTOR Inhaled Oxygen Concentration - - Weight 101.4 kg (223 lb 9.6 oz) 10/28/2024 1:49 PM GLOVE PARTS INSPECTOR Height 167.6 cm (5' 6 ) 10/28/2024 1:49 PM GLOVE PARTS INSPECTOR Body Mass Index 36.09 10/28/2024 1:49 PM GLOVE PARTS INSPECTOR Plan of Treatment Upcoming Encounters Date Type Department Care Team (Late st Contact Info) Description 01/20/2025 1:30 PM CDT Office Visit [facility] [address] [place] [address] Darrin Moyer MD [address] [place] [address] [place] [address] Health Maintenance Due Date Last Done Comments Hepatitis C Virus (HCV) Screening 1955 TdaP Immunization 1955 Pneumococcal Immunization (50+ years) (1 of 2 - PCV) 1975 Colonoscopy 2001 Colorectal Cancer Screening 2001 Cologuard 2006 Immunochemical Fecal Occult Blood 2006 Respiratory Syncytial Virus (RSV) Immunization (Adult) (1 - Risk 60-74 years 1-dose series) 2016 SARS-COV-2 Immunization ( - season) 2024 09/12/2021, 01/03/2021, 12/06/2020 Mammogram 05/19/2025 05/19/2024, 08/0 04/2024, 03/27/2023, Additional history exists DEXA Bone Density 08/01/2025 08/01/2023, 07/30/2021 Zoster Immunization Completed 05/13/2018, 8 Influenza Immunization Completed , 08/28/2023, 07/30/2022, Additional history exists Hepatitis B Immunization Aged Out No longer eligible based on patient's age to complete this topic Meningococcal Immunization (ACWY) Aged Out No longer eligible based on patient's age to complete this topic Rotavirus Immunization Aged Out No lo nger eligible based on patient's age to complete this topic Procedures Procedure Name Priority Date/Time Associated Diagnosis Comments CARCINOEMBRYONIC ANTIGEN (CEA) Routine 10/26/2024 Malignant neoplasm of upper-inner quadrant of right breast in female, estrogen receptor positive (HCC) Family history of breast cancer gene mutation in first degree relative Family history of prostate cancer Osteopenia determined by x-ray Hot flash due to medication Aromatase inhibitor-associated arthralgia VITAMIN D, 25-HYDROXY [id number] OH Routine 10/25/2024 CBC AND DIFFERENTIAL Routine 10/25/2024 from Last 3 Months Results * CARCINOEMBRYONIC ANTIGEN (CEA) (10/26/2024) Blood us Darrin Moyer MD CHEMISTRY ORDERABLES Final Resul t CANCER ASBESTOS CLOTH INSPECTOR [facility] [address] [place] [address], * VITAMIN D, 25-HYDROXY [id number] OH (10/25/2024) us Darrin Moyer MD LAB SEND OUTS Final Result * CBC AND DIFFERENTIAL (10/25/2024) Blood us Darrin Moyer MD HEMATOLOGY ORDERABLES Final Resu lt from Last 3 Months Insurance MEDICARE [facility] Care Teams Cutter Down Relationship Specialty Start Date End Date Tiago Mason MD [address] [place], [place] [address] PCP - General Internal Medicine 04/10/23 Darrin Moyer MD [address] [facility] [address] [place], [place] [address] Consulting Physician Oncology 06/17/23
--- OUTSIDE RECORDS SUMMARY | 2024-12-04 11:03 | XMS_ITS | Data Portability ---
Author Organization [facility], [address] [place] [address] Neurology ([place]) Address [address] [place] [address] Care Team Providers Care Aws Consultant Name Role Phone BETO HUDSON Primary Care Provider [phone] Assessment Encounter Date Assessment Date Assessment LastModified by Organization Details LastModified Time 04/29/2024 04/29/2024 1. As far as the filler, unfortunately, I explained to the patient we do not have time to do that today. That would require a separate appointment. She will go ahead and make that appointment today. 2. Seborrheic keratosis- discussed etiology with the patient. They are aware that this is a benign finding. We discussed treatment options. Opting to treat with liquid nitrogen. They are aware that the area treated could get red, blister, scab, potentially scar, recur, or need further treatment. A total of six lesions were treated to the temples and one to the left cheek, some of which were inflamed. Patient tolerated this. Wound care discussed. Can follow up in 4 weeks if they wish to have other lesions treated/re-treat ed. SK [email or web address] Not available 04/29/2024 16:05:55 06/11/2024 06/11/2024 Risks and benefits discussed such as erythema, needle madrid, acne-like skin eruptions, skin lumpiness, visual tissue filler, asymmetry, pain, skin sensitivity, accidental intra arterial injection, damage to deeper structures, infection, allergic reaction and hypersensitivity , granulomas, necrosis, antibodies to dermal fillers, and anesthetic reactions. We discussed the use of hyaluronidase in the event of accidental intra-arterial injection in great detail. Informed verbal and written consent was obtained. Face was anesthetized with tetracaine and lidocaine. Thoroughly removed and prepped with Hibiclens and normal saline. Using BD insulin syringes Restylane Refyne was injected. Proper aspiration with each injection. 0 blood return. No signs or symptoms of a vascular occlusion. I reviewed the post filler treatment handout. This was provided to the patient. I gave her my personal number just in case there was any questions regarding potential vascular occlusion. Questions were addressed. Patient verbalizes understanding of the above. [email or web address] Not available 06/11/2024 16:17:41 09/08/2024 09/08/2024 1. Seborrheic keratosis- discussed etiology with the patient. They are aware that this is a benign finding. We discussed treatment options. Opting to treat with liquid nitrogen. They are aware that the area treated could get red, blister, scab, potentially scar, recur, or need further treatment. A total of six lesions were treated to the patient s face, back and shoulders, some of which were inflamed. Patient tolerated this. Wound care discussed. Can follow up in 4 weeks if they wish to have other lesions treated/re-treat ed. 2. Benign sebaceous hyperplasia. No treatment today. 3. Solar elastosis- discussed the importance of using sunscreen SPF 30 as well as wearing a wide brimmed hat. Monitor for anything new or changing. I did recommend yearly full-body skin checks. SUHA [email or web address] Not available 09/08/2024 15:30:07 Plan of Treatment Reminders Order Date Submit Date Provider Last Modified By Organization Details Last Modified Time Details Appointments Establi shed Patient 15.EST 2024 09:00A M Leonora Rodriguez Not available Not available Not available Lab None recorde d. Referral None recorde d. Procedures None recorde d. Surgeries None recorde d. Imaging None recorde d. Medication Orders None recorde d. Patient TargetsNo targets recorded. Patient InstructionsNo instructions recorded. Reason for Referral None Reported. Problems Name Problem SNOMED Code Status Onset Date Resolution Date Notes Provider Name and Address Organization Details Recorded Time Seborrheic keratosis 867567093 Active 2023 Leonora Arias r, FLIGHT OPERATION COORDINATOR, LABORER ELECTROPLATING [address] [place] [address], [phone] [place] [address] 11/27/202 4 09:32:31 Solar degeneratio n 74429034 Active 2023 Leonora puga APRN, LABORER ELECTROPLATING [address] [facility], [place], [address], [facility] 4 09:32:34 Sebaceous gland hypertrophy 981409370 Active 2023 Leonora puga APRN, LABORER ELECTROPLATING [address] [facility], [place], [address], [facility] 4 09:32:42 Seborrheic keratosis 461754822 Completed 202304/29/2024 Leonora puga APRN, LABORER ELECTROPLATING [address] , [place], [address], [facility] 4 09:32:31 Inflamed seborrheic keratosis 719412844 Completed 202304/29/2024 Leonora puga APRN, LABORER ELECTROPLATING [address] [facility], [place], [address], [facility] 4 09:32:33 Chronic effect of ultraviolet radiation on normal skin 809589400 Completed 202304/29/2024 [facility] 09:06:48 Inflamed seborrheic keratosis 547639684 Active 2023 Leonora puga APRN, LABORER ELECTROPLATING [address] [facility], [place], [address], [facility] 4 09:32:33 Circumoral rhytides 4590839 Active 2023 Leonora puga APRN, LABORER ELECTROPLATING [address], [place], [address], [facility] 4 10:33:26 Problem Notes None recorded. Medical Equipment None Reported. Allergies Allergen ID Allergen Name Allergen Category Reaction Reaction Severity Criticality Documentation Date Start Date Code Code System Note Provider Name and Address Organization Details Recorded Time 222697 Levaquin medicatio n itching Not available Not available 11/10/20232022 74604 2 RxNorm React ion: Itchi ng; Not Available Not Available Not Available Medications Name Sig Start Date Stop Date Status Note LastModified by Organization Details LastModified Time celecoxib 200 mg capsule active Not Available Not Available Not Available hydrocodone 5 mg-acetaminophen 325 mg tablet active Not Available Not Availabl e Not Available prednisone 20 mg tablet 04/29 completed Not Available Not Available Not Available alendronate 70 mg tablet active Not Available Not Available No t Available amlodipine 5 mg tablet active Not Available Not Available Not Available tramadol 50 mg tablet active Not Available Not Available Not Available exemestane 25 mg tablet 04/29 completed Not Available Not Available Not Available hydrochlorothiaz alice 25 mg tablet active Not Available Not Avail able Not Available losartan 100 mg tablet active Not Available Not Available Not Available mometasone 0.1 % topical cream active Not Available Not Availabl e Not Available amoxicillin 875 mg-potassium clavulanate 125 mg tablet 04/29 completed Not Available Not Available Not Available cyclobenzaprine 5 mg tablet active Not Available Not Available Not Available levocetirizine 5 mg tablet active Not Available Not Available No t Available Vitals None Recorded Social History None recorded. Functional Status None recorded. Mental Status None recorded. Family History Nothing Reported Notes:pt denies family hx of skin cancer Medical History No medical history recorded. Gynecological HistoryNo gynecological history recorded. Obstetrics History GPAL:G 0 P 0 0 0 0 Past Encounters Encounter ID Performer Location Encounter Start Date Encounter Closed Date Diagnosis/Indication Diagnosis SNOMED-CT Code Diagnosis ICD10 Code Diagnosis Note [id number] Leonora Rodriguez APRN, [facility] [address] [place] [address] 04/29/2024 09:59:01 04/29/2024 10:33:08 Inflamed seborrheic keratosis 293851659 L82.0 Circumoral rhytides 9368 001 R23.4 [id number] Leonora Rodriguez APRN, [facility] [address] [place] [address] 06/11/2024 15:06:54 06/11/2024 16:24:56 Circumoral rhytides 4934528 R23.4 [id number] Leonora Rodriguez APRN, LABORER ELECTROPLATING [facility] [address] [place] [address] 09/08/2024 09:18:12 09/08/2024 09:37:48 Seborrheic keratosis 958405897 L82.1 Inflamed s eborrheic keratosis 267442047 L82.0 Solar degeneration 58018 006 L57.8 Sebaceous gland hypertrophy 853559341 L73.8 Health Concerns Section Related Observation LastModified by Organization Detai ls LastModified Time None Recorded Concern Status LastModified by Organization Details LastModified Time None Recorded Advance Directives Directive None Recorded Payers Encounter Date Sequence Insurance Name Policy Number Policy Tran Covered Member ID Tran Member ID Guarantor Name 04/29/2024 1 [place] Ana Lilia E Sheafor [id number] Ana Lilia E Sheafor 04/29/2024 2 [place] [id number] Ana Lilia E Sheafor [id number] Ana Lilia E Sheafor 06/11/2024 COSMETIC SELF PAY Ana Lilia E Sheafor [id number] Ana Lilia E Sheafor 09/08/2024 1 [place] Ana Lilia E Sheafor [id number] Ana Lilia E Sheafor 09/08/2024 2 [place] [id number] Ana Lilia E Sheafor [id number] Ana Lilia E Sheafor Notes Date Note Type Note Provider Name and Address Organization Details Recorded Time 04/29/2024 text/html A 68 -year-old female patient here today for areas on the face that she would like treated with cryo. She is also interested in possibly getting filler placed to the perioral area. Leonora Rodriguez APRN, LABORER ELECTROPLATING [address] [place] [address], [phone], [facility] 04/29/2024 16:39:48 06/11/2024 text/html A 68 -year-old female patient here today for perioral filler. She has noticed some wrinkling to this area and would like to correct it as much as possible.SUHA Rodriguez APRN, LABORER ELECTROPLATING [address] [place] [address], [phone], [facility] 06/16/2024 09:19:55 09/08/2024 text/html A 69 -year-old female patient here today for an upper body skin check. She has some lesions she would like treated with liquid nitrogen.SUHA Rodriguez APRN, LABORER ELECTROPLATING [address] [place] [address], [phone], [facility] 09/13/2024 14:50:17 OBGyn Episode No OBEpisode recorded.
== END 2024-12-04 11:00 | disposition home or self-care (01) ==
PROVIDERS: Visit Provider Orthopaedic Surgery
DX: M17.12 Unilateral primary osteoarthritis, left knee (principal); M25.462 Effusion, left knee
CPT/HCPCS: 73700

== ENCOUNTER 2024-12-09 10:29 | Outpatient (CLI) | payer MEDICARE, SELFPAY ==
[2024-12-09 11:05] LABS: Hematocrit 39.4 % (37.0-47.0); Hemoglobin 12.9 g/dL (12.0-15.0)
[2024-12-09 11:16] LABS: Albumin Level 4.2 g/dL (3.5-5.1); Estimated Glomerular Filt Rate > 60
== END 2024-12-09 10:30 | disposition home or self-care (01) ==
PROVIDERS: Visit Provider Orthopaedic Surgery
DX: M17.12 Unilateral primary osteoarthritis, left knee (principal); I10 Essential (primary) hypertension; E55.9 Vitamin D deficiency, unspecified
CPT/HCPCS: 36415; 82040; 82565; 85014; 85018; 93005

== ENCOUNTER 2025-01-12 09:55 | Outpatient (CLI) | payer MEDICARE, SELFPAY ==
--- OUTSIDE RECORDS SUMMARY | 2025-01-12 11:11 | XMS_ITS | Clinical Summary ---
Author Organization [facility] Address [address] [place] [address] Phone Care Team Providers Care Department Head [employer] Name Role Phone Tiago Mason MD Primary Care Provider [phone] Darrin Moyer MD Unavailable Allergies Active Allergy [...] Department Care Team Description 10/28/2024 1:45 PM SPECIMEN BOSS Office Visit [facility] [address] [place] [phone] Margarette Olmos, HOSTAGE NEGOTIATOR, LIME PLANT OPERATOR Malignant neoplasm of upper-inner quadrant of right [...] Comments Blood Pressure 152/78 10/28/2024 1:49 PM SPECIMEN BOSS Pulse 88 10/28/2024 1:49 PM SPECIMEN BOSS Temperature 36.8 C (98.2 F) 10/28/2024 1:49 PM SPECIMEN BOSS Respiratory Rate 16 10/28/2024 1:49 PM SPECIMEN BOSS Oxygen Saturation 99% 10/28/2024 1:49 PM SPECIMEN BOSS Inhaled Oxygen Concentration - - Weight 101.4 kg (223 lb 9.6 oz) 10/28/2024 1:49 PM SPECIMEN BOSS Height 167.6 cm (5' 6 ) 10/28/2024 1:49 PM SPECIMEN BOSS Body Mass Index 36.09 10/28/2024 1:49 PM SPECIMEN BOSS Plan of Treatment Upcoming Encounters Date Type Department Care Team (Late st Contact Info) Description 01/20/2025 1:30 PM CDT Office Visit [facility] [address] [place] [address] Darrin Moyer MD [address] [place] [address] [place] [address] Health Maintenance Due Date Last [...] medication Aromatase inhibitor-associated arthralgia VITAMIN D, 25-HYDROXY [id number] OH Routine 10/25/2024 CBC AND DIFFERENTIAL Routine 10/25/2024 from Last 3 Months Results * CARCINOEMBRYONIC ANTIGEN (CEA) (10/26/2024) Blood us Darrin Moyer MD CHEMISTRY ORDERABLES Final Resul t CANCER ENVIRONMENTAL ENGINEERING INTERN [facility] [address] [place] [address], * VITAMIN D, 25-HYDROXY [id number] OH (10/25/2024) us Darrin Moyer MD LAB SEND OUTS Final Result * CBC AND DIFFERENTIAL (10/25/2024) Blood us Darrin Moyer MD HEMATOLOGY ORDERABLES Final Resu lt from Last 3 Months Insurance MEDICARE [facility] Care Teams Department Head [employer] Relationship Specialty Start Date End Date Tiago Mason MD [address] [place], [place] [address] PCP - General Internal Medicine 04/10/23 Darrin Moyer MD [address] [facility] [address] [address] [place], [place] [address] Consulting Physician Oncology 06/17/23
--- OUTSIDE RECORDS SUMMARY | 2025-01-12 11:11 | XMS_ITS | Encounter Summary ---
Author Organization [facility] Address [address] [place] [address] Phone Care Team Providers Care Training Mgr Name Role Phone Tiago Mason MD Primary Care Provider [phone] Darrin Moyer MD Unavailable Reason for Visit * Reason Onset Date Comments Melatonin? 01/23/2024 Encounter Details Date Type Department Care Team (Late st Contact Info) Description 01/23/[address] [place] [address] Darrin Moyer MD [address] [place] [address] [place] [address] Melatonin? Social History Tobacco Use Types Packs/Day [...] Description 01/20/2025 1:30 PM CDT Office Visit [facility] [address] [place] [address] Darrin Moyer MD [address] [place] [address] [place], [place] [address] documented as of this encounter Visit Diagnoses Not on filedocumented in this encounter Care Teams Training Mgr Relationship Specialty Start Date End Date Tiago Mason MD [address] [place] [phone] PCP - General Internal Medicine 04/10/23 Darrin Moyer MD [address] [place] [address] [place], [place] [phone] Consulting Physician Oncology 06/17/23 documented as of this encounter
--- OUTSIDE RECORDS SUMMARY | 2025-01-12 11:11 | XMS_ITS | Clinical Summary ---
Author Organization [facility] Address [facility] [place] [address] Care Team Providers Care Outside Production Inspector Name Role Phone Tiago Mason MD Primary Care Provider [phone] Allergies Active Allergy Reactions Criticality Noted Date [...] Info) Description 05/19/2025 9:15 AM CDT Appointment [facility] [address] [place] [address] Tiago Mason MD [address] [place], [place] [address] Health Maintenance Due Date Last Done Comments [...] file Type:Indemnity Address: ATTN CLAIMS [address] [place] [address] [place] [address] MEDICARE [facility] Care Teams Outside Production Inspector Relationship Specialty Start Date End Date Tiago Mason MD [address] [place] [address] PCP - General INTERNAL MEDICINE 07/13/19
--- OUTSIDE RECORDS SUMMARY | 2025-01-12 11:11 | XMS_ITS | Encounter Summary ---
Author Organization [facility] Address [address] [place] [address] Phone Care Team Providers Care Lithograph Operator Name Role Phone Tiago Mason MD Primary Care Provider [phone] Darrin Moyer MD Unavailable Reason for Visit * Reason Onset Date Comments Leg Pain 04/12/2024 Encounter Details Date Type Department Care Team (Late st Contact Info) Description 04/12/[address] [place] [address] Darrin Moyer MD [address] [place] [address] [place] [address] Leg Pain Social History Tobacco Use Types [...] Description 01/20/2025 1:30 PM CDT Office Visit [facility] [address] [place] [address] Darrin Moyer MD [address] [place] [address] [address] [place], [place] [address] documented as of this encounter Visit Diagnoses Not on filedocumented in this encounter Care Teams Lithograph Operator Relationship Specialty Start Date End Date Tiago Mason MD [address] [place] [address] PCP - General Internal Medicine 04/10/23 Darrin Moyer MD [address] [place] [address] [address] [place], [place] [address] Consulting Physician Oncology 06/17/23 documented as of this encounter
[2025-01-12 11:17] LABS: Basophils Percent Auto 0.2 % (0.2-1.2); Eosinophils Absolute Auto 0.2 K/mm3 (0-0.3); Eosinophils Percent Auto 1.9 % (0-4.4); Hematocrit 39.6 % (37.0-47.0); Hemoglobin 12.9 g/dL (12.0-15.0); Immature Granulocyte Absolute 0.03 K/mm3 (0.00-0.031); Immature Granulocyte Percent A 0.4 % (0-0.5); Lymphocytes Absolute Auto 2.94 K/mm3 (0.9-3.2); Mean Corpuscular HGB Conc 32.6 g/dl (32-36); Mean Corpuscular Hemoglobin 29.9 pg (26-34); Mean Corpuscular Volume 91.9 fl (80-100); Mean Platelet Volume 10.4 fl (7.4-10.4); Monocytes Absolute Auto 0.5 K/mm3 (0.1-0.6); Monocytes Percent Auto 5.6 % (2.6-8.5); Neutrophils Absolute Auto 4.8 K/mm3 (1.3-6.7); Neutrophils Percent Auto 56.9 % (45.5-73.1); Platelet Count Result 339 k/mm3 (150-375); Red Blood Count 4.31 M/mm3 (4.2-5.4); Red Cell Distribution Width 13.6 % (11.5-14.5); White Blood Count 8.4 K/mm3 (4.5-10.0)
[2025-01-12 11:33] LABS: Albumin Level 4.6 g/dL (3.5-5.1)
[2025-01-12 11:36] LABS: Anion Gap 10 mmol/L (4-12); Blood Urea Nitrogen 20 mg/dL (7-17); Calcium 9.7 mg/dL (8.4-10.2); Carbon Dioxide 26 mmol/L (22-30); Chloride 107 mmol/L (98-107); Estimated Glomerular Filt Rate > 60; Glucose 126 mg/dL (65-110); Potassium 3.6 mmol/L (3.4-5.0); Sodium 143 mmol/L (137-145)
[2025-01-12 11:39] LABS: Urine Cotinine NEGATIVE
[2025-01-12 12:07] LABS: Hemoglobin A1C 5.9 % (<5.7)
[2025-01-12 12:28] LABS: MRSA (PCR) NOT DETECTED (NOT DETECTE)
== END 2025-01-12 09:56 | disposition home or self-care (01) ==
LOC: ANHSURGERY 10:01
PROVIDERS: Anesthesiology; Visit Provider Orthopaedic Surgery
DX: M17.12 Unilateral primary osteoarthritis, left knee (principal); I10 Essential (primary) hypertension; Z01.818 Encounter for other preprocedural examination
CPT/HCPCS: 36415; 80048; 80307; 82040; 83036; 85025; 87641

== ENCOUNTER 2025-02-07 01:07 | Day surgery (SDC) | payer MEDICARE, SELFPAY ==
--- NOTE | 2025-01-12 09:57 | PC.NURSE ---
Report to the Outpatient Waiting Room, entrance under the green pavilion located off [facility], at time 12:30 PM on date __02/07/25 . Planned Procedure Time: __2:30 PM .? Time changes happen often and if your time is changed the preop area will call you the afternoon before. - You and your visitor will be asked to self-screen and do not enter if you have any COVID symptoms. Please call surgeon if you need to reschedule. - A mask is optional within the hospital at this time. Patients may have clear liquids (water, carbonated beverages, clear teas, apple juice) until 3 hours prior to surgery ( 11:30 AM) with a maximum of 20 ounces. - No food from midnight until time of surgery and no smoking, or chewing tobacco (or any form of nicotine). No chewing gum, candy or mints. Take only the following medications with a SIP of water on the morning of surgery: NORVASC, DO NOT STOP ANY OF YOUR OTHER PRESCRIPTION MEDICATIONS PRIOR TO SURGERY EXCEPT THE FOLLOWING Hold all vitamins and supplements for 3 days per anesthesiologist. LAST DOSE 02/03/[address] CELEBREX [address] DR JOSHI Medications to discontinue per physician NONE MAY TAKE TYLENOL IF NEEDED FOR PAIN Please no make-up, nail upper sorbian, hairspray, perfume, deodorant, or body powder the day of surgery.? No jewelry (including any body piercings) or valuables the day of surgery, leave them at home.? Please take a shower or bath the night before, or the morning of, surgery with an antibacterial soap.? Wear comfortable, loose fitting clothing.? Children are encouraged to wear pajamas. - Jewelry must be removed prior to entering the operating room.? Rings and piercings that are not removed may be cut off. - The hospital will not accept responsibility for valuables.? - Please leave all valuables, including medications, at home the day of surgery. If you are going home after surgery, a licensed recycler forklift driver truck driver must drive you home.? - NO public transportation without another adult if you receive anesthesia. - We recommend that an adult stay with you for 24 hours following discharge. - We also recommend that you do not drive, make important decision, drink alcoholic beverages, or take any drugs that were not prescribed by your health care provider for at least 24 hours after your discharge time. For Pediatric surgeries, we recommend two adults accompany the child home. Follow any additional instructions given to you from your surgeon. VERBAL AND WRITTEN instructions given to __PATIENT_AND SPOUSE DON and asked if any additional questions and then verbalized understanding. Patient advised to call surgeon office or pre surgery nurse liaison [phone] if any additional questions.
[2025-01-12 10:05] VITALS: BMI 35.3
[2025-01-12 10:52] VITALS: BP 139/73; PULSE 73; RESP 18; TEMP 36.7; O2SAT 99
[2025-02-07] VITALS (8 sets, daily range): BP systolic 136–156; BP diastolic 66–88; PULSE 72–96; RESP 11–20; TEMP 36.2–36.8; O2SAT 92–100
--- NOTE | ~2025-02-07 | XR_ITS ---
EXAM: [id number] DATE: 02/07/2025 17:36 HISTORY: POST-OP LEFT CUSTOM TKA . COMPARISON: 11/19/2024, images only. FINDINGS: Decreased mineralization. No fracture or dislocation. No lytic or blastic lesion. Total kn ee arthroplasty hardware, in good position. Gas and fluid over the joint space. No unexpected radiopa que foreign body. IMPRESSION: Expected postsurgical changes, with no radiographic evidence of procedure or hardware rel ated complication. Reviewed, dictated and finalized at location K. IMPRESSION: Expected postsurgical changes, with no radiographic evidence of pro cedure or hardware related complication.
--- OUTSIDE RECORDS SUMMARY | 2025-02-07 01:11 | XMS_ITS | Encounter Summary ---
Author Organization [facility] Address [address] [place] [address] Phone Care Team Providers Care Greenskeeper Supervisor Name Role Phone Tiago Mason MD Primary Care Provider [phone] Darrin Moyer MD Unavailable Reason for Visit * Reason Onset Date Comments Melatonin? 01/23/2024 Encounter Details Date Type Department Care Team (Late st Contact Info) Description 01/23/[address] [place] [address] Darrin Moyer MD [address] [place] [address] [place] [address] Melatonin? Social History Tobacco Use Types Packs/Day [...] Care Team (Late st Contact Info) Description 04/21/2025 1:45 PM CDT Office Visit [facility] [address] [place] [address] Darrin Moyer MD [address] [place] [address] [address] [place], [place] [address] documented as of this encounter Visit Diagnoses Not on filedocumented in this encounter Care Teams Greenskeeper Supervisor Relationship Specialty Start Date End Date Tiago Mason MD [address] [place] [phone] PCP - General Internal Medicine 04/10/23 Darrin Moyer MD [address] [place] [address] [address] [place], [place] [phone] Consulting Physician Oncology 06/17/23 documented as of this encounter
--- OUTSIDE RECORDS SUMMARY | 2025-02-07 01:11 | XMS_ITS | Clinical Summary ---
Author Organization [facility] Address [facility] [place] [address] Care Team Providers Care Clinical Data Management Director Name Role Phone Tiago Mason MD Primary Care Provider Allergies Active Allergy Reactions Criticality Noted Date [...] Info) Description 05/19/2025 9:15 AM CDT Appointment [facility] [address] [place] [address] Tiago Mason MD [address] [place], [place] [address] Health Maintenance Due Date Last Done Comments Colorectal Cancer Screening Colonoscopy (10 Years) 1956 Hepatitis C 1974 DTaP, Tdap and Td Vaccines (1 - Tdap) 1975 Pneumococcal Vaccine: 50+ Years (1 of 1 - PCV) 2006 Annual Medicare Wellness Visit 2021 COVID-19 Vaccine (1 - 2023-25 season) 2024 Mammogram Screening 05/19/2026 05/19/2024, 03/27/2023, 07/19/2022, Additional [...] BI-RADS 2 - BENIGN FINDING(S) Ordered By: EITAN BURGOS Interpreted By: Sergey Esparza MD, 05/19/2024 [...] supplemental screening in addition to mammogram. us Eitan Burgos MD MAMMO Final Result * BONE DENSITY/DEXA (08/01/2023 10:10 AM CDT) Anatomical Region Laterality Modality Bone Bone Density 08/01/2023 10:1 9 AM CDT Impressions 08/01/2023 10:22 AM CDT Impression: BMD measured at both femoral necks and right total hip at WHO category level of osteopenia. BMD measured at left total hip and AP lumbar spine at level of normal. Ordered By: VICKY MOYER Interpreted By: Harvey Calvillo MD, 08/01/2023 [...] spine at level of normal. Ordered By: VICKY MOYER Interpreted By: Harvey Calvillo MD, 08/01/2023 10:19 AM Vicky Moyer MD DEXA Final Result from Last 3 Months or Most Recently Relevant to Health Maintenance Insurance MEDICARE Member Subscriber Plan / Payer (Ef fective 2022-Present) Name:Ana Lilia Beckham Relation to Subscriber:Self Name:Ana Lilia Beckham Payer ID:Not on file Group ID:Not on file Type:Indemni Address: [place] [phone] [facility] MEDICARE [facility] Care Teams Clinical Data Management Director Relationship Specialty Start Date End Date Tiago Mason MD [address] [place] [address] PCP - General INTERNAL MEDICINE 07/13/19
--- OUTSIDE RECORDS SUMMARY | 2025-02-07 01:11 | XMS_ITS | Clinical Summary ---
Author Organization [facility] Address [address] [place] [address] [place] [address] Phone Care Team Providers Care Quality Assurance Monitor Body Name Role Phone Tiago Mason MD Primary Care Provider [phone] Darrin Moyer MD Unavailable Allergies Active Allergy Reactions Criticality Noted Date Comments Levofloxacin Itching 04/10/2023 Other-Environmental Allergen (Not Found In Search) Other (see Comments) 04/10/2023 Hay fever Medications celecoxib (CeleBREX) 200 MG Capsule Take 200 mg by mouth daily. Active losartan (COZAAR) 100 MG Tablet Take 100 mg by mouth daily. 3 Active hydroCHLOROthi azide 25 MG Tablet Take 25 mg by mouth daily. 3 Active amLODIPine (NORVASC) 5 MG Tablet Take 5 mg by mouth daily. Active POTASSIUM PO Take 1 Tablet by mouth daily. Active Multivitamin-M inerals Tablet Take 1 Tablet by mouth daily. Active acetaminophen (TYLENOL) 325 MG Tablet Take 650 mg by mouth. 3 Active Calcium Carbonate Antacid 600 MG Chewable Tablet Take 1 Tablet by mouth. Active Cholecalcifero l 2000 UNIT Capsule Take 1 Capsule by mouth daily. Active Cyanocobalamin (VITAMIN B-12) 1000 MCG Tablet Take 1,000 mcg by mouth. Active magnesium oxide 250 MG Tablet Take 250 mg by mouth. Active tamoxifen citrate 20 MG Tablet Take 1 Tablet by mouth daily 60 Tablet 6 4 Active alendronate (FOSAMAX) 70 MG Tablet TAKE 1 TABLET BY MOUTH EVERY 7 DAYS. 12 Tablet 6 5 Active alendronate (FOSAMAX) 70 MG Tablet Take 1 Tablet by mouth every 7 days. 12 Tablet 6 4 01/18/20 25 Discontinued Active Problems Problem Noted Date Diagnosed Date HTN (hypertension) 01/20/2025 Malignant neoplasm of upper- inner quadrant of right breast in female, estrogen receptor positive 07/23/2023 Abnormal magnetic resonance imaging of right alycia ast 05/01/2023 Encounters Date Type Department Care Team Description 01/20/2025 1:30 PM CDT Office Visit [address] [address] Darrin Moyer MD Malignant neoplasm of upper-inner quadrant of right breast in female, estrogen receptor positive (HCC) (Primary Dx); Family history of breast cancer gene mutation in first degree relative; Family history of prostate cancer; Osteopenia determined by x-ray; Dense breast tissue on mammogram, unspecified type; Left knee pain, unspecified chronicity; Aromatase inhibitor-associated arthralgia; Hot flash due to medication; Leg pain, diffuse, left 01/20/2025 Travel 01/17/[address] [address] Darrin Moyer MD Medication Refill (fosamax) from Last 3 Months Immunizations Immunization Administration [...] Sign Reading Time Taken Comments Blood Pressure 142/80 01/20/2025 1:31 PM CDT Pulse 90 01/20/2025 1:31 PM CDT Temperature 36.8 C (98.3 F) 01/20/2025 1:31 PM CDT Respiratory Rate 16 01/20/2025 1:31 PM CDT Oxygen Saturation 99% 01/20/2025 1:31 PM CDT Inhaled Oxygen Concentration - - Weight 98.7 kg (217 lb 8 oz) 01/20/2025 1:31 PM CDT Height 167.6 cm (5' 6 ) 01/20/2025 1:31 PM CDT Body Mass Index 35.11 01/20/2025 1:31 PM CDT Plan of Treatment Upcoming Encounters Date Type Department Care Team (Late st Contact Info) Description 04/21/2025 1:45 PM CDT Office Visit [facility] [address] [place] [address] Darrin Moyer MD [address] [place] [address] [place] [address] Health Maintenance Due Date Last Done Comments Hepatitis C Virus (HCV) Screening 1955 TdaP Immunization 1955 Pneumococcal Immunization (50+ years) (1 of 2 - PCV) 1975 Colonoscopy 2001 Colorectal Cancer Screening 2001 Cologuard 2006 Immunochemical Fecal Occult Blood 2006 Respiratory Syncytial Virus (RSV) Immunization (Adult) (1 - Risk 60-74 years 1-dose series) 2016 SARS-COV-2 Immunization ( season) 2024 09/12/2021, 01/03/2021, 12/06/2020 Mammogram 05/19/2025 05/19/2024, 08/0 04/2024, 03/27/2023, Additional history exists DEXA Bone Density 08/01/2025 08/01/2023, 07/30/2021 Zoster Immunization Completed 05/13/2018, 8 Influenza Immunization Completed 4, 08/28/2023, 07/30/2022, Additional history exists Hepatitis B [...] Associated Diagnosis Comments CARCINOEMBRYONIC ANTIGEN (CEA) Routine 01/17/2025 Malignant neoplasm of upper-inner quadrant of right breast in female, estrogen receptor positive (HCC) Family history of breast cancer gene mutation in first degree relative Family history of prostate cancer Osteopenia determined by x-ray Hot flash due to medication Aromatase inhibitor-associated arthralgia Left knee pain, unspecified chronicity Dense breast tissue on mammogram, unspecified type CMP (COMPREHENSIVE METABOLIC PANEL) Routine 01/17/2025 Malignant neoplasm of upper-inner quadrant of right breast in female, estrogen receptor positive (HCC) Family history of breast cancer gene mutation in first degree relative Family history of prostate cancer Osteopenia determined by x-ray Hot flash due to medication Aromatase inhibitor-associated arthralgia Left knee pain, unspecified chronicity Dense breast tissue on mammogram, unspecified type from Last 3 Months Results * CMP (COMPREHENSIVE METABOLIC PANEL) (01/17/2025) Blood Margarette Olmos SPOOLING MACHINE OPERATOR, DEVELOPMENT EXPERT CHEMISTRY ORDERABLES Fin al Result Performing Organization Address City/[facility] Co de Phone Number [facility] [place] [address], [place] [phone] * CARCINOEMBRYONIC ANTIGEN (CEA) (01/17/2025) Blood Margarette Olmos SPOOLING MACHINE OPERATOR, DEVELOPMENT EXPERT CHEMISTRY ORDERABLES Fin al Result Performing Organization Address City/[facility] Co de Phone Number [facility] [place] [place] [address], [place] [phone] from Last 3 Months Insurance MEDICARE [facility] Care Teams Quality Assurance Monitor Body Relationship Specialty Start Date End Date Tiago Mason MD [address] [place], [place] [address] PCP - General Internal Medicine 04/10/23 Darrin Moyer MD [address] [facility] [place] [address] Consulting Physician Oncology 06/17/23
--- OUTSIDE RECORDS SUMMARY | 2025-02-07 01:11 | XMS_ITS | Data Portability ---
Author Organization [place] [facility], [facility] Address [address] [place] [address] Assessment No assessment recorded. Plan of Treatment Reminders Order Date Submit Date Provider Last Modified By Organization Details Last Modified Time Details Appointments None recorded. Lab noninvasive colorectal cancer DNA + occult blood screening, QL, stool 2023 024 [facility] (Cologuard Orders Only), [address], [address], [place], [address], 18:27:00 Referral None recorded. Procedures None recorded. Surgeries None recorded. Imaging None recorded. Medication Orders None recorded. Patient TargetsNo targets recorded. Patient InstructionsNo instructions recorded. Reason for Referral None Reported. Results Created Date Observation Date Name Description Value Unit Range Abnormal Flag Note LastModifiedBy Organization Detail LastModifiedTime 12/07/1907/14/2020 imagi ng/di agnos tic resul t No observ ation record ed. Not Available 12/07/2024 12:55:48 12/07/1907/16/2021 imagi ng/di agnos tic resul t No observ ation record ed. Not Available 12/07/2024 12:55:48 12/07/1903/27/2023 imagi ng/di agnos tic resul t No observ ation record ed. Not Available 12/07/2024 12:55:49 12/07/1901/18/2020 imagi ng/di agnos tic resul t No observ ation record ed. Not Available 12/07/2024 12:56:00 12/07/1902/27/2023 imagi ng/di agnos tic resul t No observ ation record ed. Not Available 12/07/2024 12:56:01 12/07/1907/13/2019 imagi ng/di agnos tic resul t No observ ation record ed. Not Available 12/07/2024 12:56:04 12/07/1907/19/2022 imagi ng/di agnos tic resul t No observ ation record ed. Not Available 12/07/2024 12:56:08 12/07/1907/30/2021 imagi ng/di agnos tic resul t No observ ation record ed. Not Available 12/07/2024 12:56:11 12/07/1909/11/2022 imagi ng/di agnos tic resul t No observ ation record ed. Not Available 12/07/2024 12:56:14 Result Notes None recorded. Procedures Surgical History Date Name Laterality Status Provider Name and Address Organization Details Recorded Time 05/19/20 24 Date of Last Mammogram completed Brianne Terry [facility] 05/19/2024 15:17:09 05/13/20 23 lumpectomy of right breast completed [facility] 07/23/2024 09:53:26 07/30/20 21 dual energy X-ray absorptiometry completed [facility] 07/20/2024 11:56:06 07/12/20 19 Date of Last Pap Smear completed [facility] 07/20/2024 12:19:03 10/13/19 10 Colonoscopy completed [facility] 07/20/2024 11:55:32 Imaging Results Imaging Date Name Status LastModified by [facility] Details LastModified Time 07/14/2020 imaging/diag nostic result completed [email or web address] Information not available 12/07/2024 12:55:48 07/16/2021 imaging/diag nostic result completed Information not available 12/07/2024 12:55:48 03/27/2023 imaging/diag nostic result completed Information not available 12/07/2024 12:55:49 01/18/2020 imaging/diag nostic result completed Information not available 12/07/2024 12:56:00 02/27/2023 imaging/diag nostic result completed Information not available 12/07/2024 12:56:01 07/13/2019 imaging/diag nostic result completed Information not available 12/07/2024 12:56:04 07/19/2022 imaging/diag nostic result completed Information not available 12/07/2024 12:56:08 07/30/2021 imaging/diag nostic result completed Information not available 12/07/2024 12:56:11 09/11/2022 imaging/diag nostic result completed Information not available 12/07/2024 12:56:14 Procedure Notes None recorded. Medical Equipment None [...] Updated DateTime 07/23/2024 165.1 cm 35.8 kg/m2 03853.36 g 122 mm[Hg] 78 mm[Hg] [facility] 09:49:30 Social History Question Answer Notes LastModified by Organizat ion Details LastModified Time Tobacco Smoking Status Never Smoker [facility] 07/20/2024 11:56:36 What Is Your Level Of Alcohol Consumption? Occasional [email or web address] Information not available 07/20/2024 What Is Your Level Of Caffeine Consumption? Occasional [email or web address] Information not available 07/20/2024 Are You Currently Employed? No [email or web address] Information not available 07/23/2024 What Type Of Diet Are You Following? REGULAR [email or web address] Information not available 07/23/2024 What Is Your Occupation? Retired [email or web address] Information not available 07/23/2024 Have There Been Any Changes To Your Family Or Social Situation? No [email or web address] Information no t available 07/23/2024 What Is The Highest Level Of School You Have Completed Or The Highest Degree You Have Received? Some College [email or web address] Information not available 07/20/2024 How Do You Identify Yourself? Heterosexual [email or web address] Information not available 07/23/2024 What Is Your Ethnicity? [email or web address] Information not available 07/23/2024 What Is Your Relationship Status? [email or web address] Information not available 07/20/2024 Are There Any Smokers In Your House? No [email or web address] Information not available 07/23/2024 Do You Use Any Illicit Or Recreational Drugs? No [email or web address] Information not available 07/20/2024 Do You Or Have You Ever Used Any Other Forms Of Tobacco Or Nicotine? No [email or web address] Information not available 07/20/2024 Sex: Female Functional Status Question Answer Note LastModified by Organization D etails LastModified Time What is your exercise level? Heavy [email or web address] Information not available 07/20/2024 Mental Status None recorded. Family History Relationship Description Onset Age of this Age Resolved Age Notes LastModified by Organization Details LastModified Time Sister Family history of breast cancer [email or web address] Not available 07/20 11:57:59 Maternal Aunt Family history of breast cancer [email or web address] Not available 07/20 11:57:59 Father Family history of diabetes mellitus [email or web address] Not available 07/20 11:58:23 Father Family history of coronary arterioscler osis [email or web address] Not available 07/20 12:01:14 Medical History Condition [...] Polycystic Ovary Syndrome (PCOS) N Defects N Heart Disease N Cancer Ovarian N Hypertension N Osteoporosis N Gynecological History [...] SNOMED-CT Code Diagnosis ICD10 Code Diagnosis Note [id number] EITAN GUTIERREZ MD [facility] [address] [place] [address] 07/23/2024 09:37:41 07/23/2024 10:56:14 Screening for malignant neoplasm of colon 915079279 Z12.11 Routine gy necologic examination done 3098392968 9101 Z01.419 no ship propeller finisher bleedingno oral HRT since contraindi catedpap not needed 2/2 age/hx and doesn't meet high risk criteriaPC P: Dr. Chely butcher routine exam w/pcpvacci mercedes: s/p covid with one booster, s/p flu and shingles, considerin g pneumonia and RSV vaccinesso cial: to [place]; no D.Vl, homemaker, two grown childrenre commend monthly SBEs: does dorecommen d yearly mammogram: done ecl sah rectalcolo noscopy: done in 2009 and will now do cologuard; order sentno smoking/va ping/THC/n or illicit drugsencou rage adequate calcium/vi t D and weight bearing exerciseen courage sunscreen and seatbelt use, avoid tanning bedsencour age weight loss with healthy diet and exerciseRT C: in two years or sooner prn. History of malignant neoplasm of breast 703539538 Z85.3 lump found on previous annual exam. S/P lumpectomy on right with radiation. Now seeing Dr. Moyer. previous medication had ill side effects so he started her on tamoxifen yesterday. . Mammogram done this May was wnl Osteopenia 245025794 M85 .80 Dr. Moyer is performing DEXA scans and has her on fosfamax. She is taking calcium and vit. D. Also, encourage weight bearing exercise. Family his tory of breast cancer [id number] Z80.3 pt's sister and maternal aunt have breast cancer; Pt. has been tested for genetic component to her breast cancer and testing was negative. Obese class II [id number] 1 04712 E66.812 has gained 9# since last visit; mobility limited by bone on bone in her knee; she gets injections in her kneeencour aged weight loss with healthy diet and exercisept . may address weight loss drugs with her pcp Cystocele 638834984 N81. 10 pt. states it is asymptomat ic and declines interventi on Skin lesion 77241144 L98 .9 patient has multiple benign appearing [...] Guarantor Name 07/23/2024 2 [place] [id number] Ana Lilia Blakereyna [id number] Ana Lilia Pruittjesus 07/23/2024 1 [place] Ana Lilia Antoinette Sonaljesus [id number] 3 Ana Lilia Curry Sonaljesus Notes Date Note Type Note Provider Name and Address Organization Details Recorded Time 07/23/2024 text/html Annual GYNReported bypatient.History :obstetric history: G2 T__ P__ A__ L__ (2); date of last Pap test (07/12/2019 normal/-HR HPV); family history of cancer (breast-Maternal Aunt, sister, and Patient) Urinary symptoms:Postmeno pausal Vulva:no genital lesion Vagina:normal vaginal discharge Breast:no breast pain; no breast lump; no nipple discharge Current Contraception:par tner had vasectomy Sexual complaints:no sexual complaints; no [...] screen with annual pap EITAN GUTIERREZ MD [address] [place] [address], [phone], [facility] 07/23/2024 10:38:10 OBGyn Episode Ob Episode Information Episode Created Date Number of Fetuses Patient Bloodtype Patient rh Status Prepregnancy Weight lbs Domestic Partner Domestic Partner Phone Father Name Enterprise Systems Architect Status 07/20/20 24 1 CLOSED Fetus Data First Name Last Name Admitted to NICU Weight (g) Sex Living Outcome Pediatric Complications Fetus ID Race Codes Race Delivery Type 38362.3 01652 M Full Term [id number] Vaginal Yamil Calculation Initial Yamil Date Initial [...] Complications Tubal Sterilization Discharge Date Comments 4 Regional-Ep idural 40 false Discharge Information Feeding Method Contraceptive Method Maternal HG B and HCT Levels Ob Episode Information Episode Created Date Number of Fetuses Patient Bloodtype Patient rh Status Prepregnancy Weight lbs Domestic Partner Domestic Partner Phone Father Name Enterprise Systems Architect Status 07/20/20 24 1 CLOSED Fetus Data First Name Last Name Admitted to NICU Weight (g) Sex Living Outcome Pediatric Complications Fetus ID Race Codes Race Delivery Type 4139.02 7 M Full Term 75913 Vaginal Yamil Calculation Initial Yamil Date Initial [...] Complications Tubal Sterilization Discharge Date Comments 8 Regional-Ep idural 40 false [place] Discharge Information Feeding Method Contraceptive Method Maternal HG B and HCT Levels
--- OUTSIDE RECORDS SUMMARY | 2025-02-07 01:11 | XMS_ITS | Data Portability ---
Author Organization [facility], [address] [place] [address] Neurology ([place]) Address [address] [place] [address] Care Team Providers Care Machinist Mechanic Name Role Phone BETO HUDSON Primary Care Provider [phone] Assessment Encounter Date Assessment Date Assessment LastModified [...] addressed. Patient verbalizes understanding of the above. Not available 06/11/2024 16:17:41 09/08/2024 09/08/2024 1. [...] Address Organization Details Recorded Time Seborrheic keratosis 622201105 Active 2023 Leonora Arias r, RETIREMENT SPECIALIST, CERTIFIED MEDICINE AIDE [address] [place] [address], [phone] [place] [address] 11/27/202 4 09:32:31 Solar degeneratio n 62128001 Active 2023 Leonora puga APRN, CERTIFIED MEDICINE AIDE [address] [facility], [place], [address], [facility] 4 09:32:34 Sebaceous gland hypertrophy 415920508 Active 2023 Leonora puga APRN, CERTIFIED MEDICINE AIDE [address] [facility], [place], [address], [facility] 4 09:32:42 Seborrheic keratosis 082120305 Completed 202304/29/2024 Leonora puga APRN, CERTIFIED MEDICINE AIDE [address] , [place], [address], [facility] 4 09:32:31 Inflamed seborrheic keratosis 577047058 Completed 202304/29/2024 Leonora puga APRN, CERTIFIED MEDICINE AIDE [address] [facility], [facility] [place], [address], [facility] 4 09:32:33 Chronic effect of ultraviolet radiation on normal skin 954460650 Completed 202304/29/2024 [facility] 09:06:48 Inflamed seborrheic keratosis 631760608 Active 2023 Leonora puga APRN, CERTIFIED MEDICINE AIDE [address] [facility], [place], [address], [facility] 4 09:32:33 Circumoral rhytides 0400521 Active 2023 Leonora puga APRN, CERTIFIED MEDICINE AIDE [address], [place], [address], [facility] 4 10:33:26 Problem Notes None recorded. Medical Equipment None Reported. Allergies Allergen ID Allergen Name Allergen Category Reaction Reaction Severity Criticality Documentation Date Start Date Code Code System Note Provider Name and Address Organization Details Recorded Time 545442 Levaquin medicatio n itching Not available Not available 11/10/20232022 50621 2 RxNorm React ion: Itchi ng; Not [...] SNOMED-CT Code Diagnosis ICD10 Code Diagnosis Note [id number] Leonora Rodriguez APRN, [facility] [address] [place] [address] 04/29/2024 09:59:01 04/29/2024 10:33:08 Inflamed seborrheic keratosis 638797212 L82.0 Circumoral rhytides 9368 001 R23.4 [id number] Leonora Rodriguez APRN, [facility] [address] [place] [address] 06/11/2024 15:06:54 06/11/2024 16:24:56 Circumoral rhytides 8301321 R23.4 [id number] Leonora Rodriguez APRN, CERTIFIED MEDICINE AIDE [facility] [address] [place] [address] 09/08/2024 09:18:12 09/08/2024 09:37:48 Seborrheic keratosis 094481944 L82.1 Inflamed s eborrheic keratosis 053884690 L82.0 Solar degeneration 43228 006 L57.8 Sebaceous gland hypertrophy 926591608 L73.8 Health Concerns Section Related Observation LastModified by Organization Detai ls LastModified Time None Recorded Concern Status LastModified by Organization Details LastModified Time None Recorded Advance Directives Directive None Recorded Payers Encounter Date Sequence Insurance Name Policy Number Policy Tran Covered Member ID Tran Member ID Guarantor Name 04/29/2024 1 [place] Ana Lilia E Sheafor [id number] Ana Lilia E Sheafor 04/29/2024 2 [place] [id number] Ana Lilia E Sheafor [id number] Ana Lilia E Sheafor 06/11/2024 COSMETIC SELF PAY Ana Lilia E Sheafor [id number] Ana Lilia E Sheafor 09/08/2024 1 [place] Ana Lilia E Sheafor [id number] Ana Lilia E Sheafor 09/08/2024 2 [place] [id number] Ana Lilia E Sheafor [id number] Ana Lilia E Sheafor Notes Date Note Type Note Provider Name and Address Organization Details Recorded Time 04/29/2024 text/html A 68 -year-old female patient here today for areas on the face that she would like treated with cryo. She is also interested in possibly getting filler placed to the perioral area.SK Leonora Rodriguez APRN, CERTIFIED MEDICINE AIDE [address], [address], [facility] 04/29/2024 16:39:48 06/11/2024 text/html A 68 -year-old female patient here today for perioral filler. She has noticed some wrinkling to this area and would like to correct it as much as possible.SUHA Rodriguez APRN, CERTIFIED MEDICINE AIDE [address] [place] [address], [phone], [facility] 06/16/2024 09:19:55 09/08/2024 text/html A 69 -year-old female patient here today for an upper body skin check. She has some lesions she would like treated with liquid nitrogen.SUHA Rodriguez APRN, CERTIFIED MEDICINE AIDE [address] [place] [address], [phone], [facility] 09/13/2024 14:50:17 OBGyn Episode No OBEpisode recorded.
--- OUTSIDE RECORDS SUMMARY | 2025-02-07 01:11 | XMS_ITS | Encounter Summary ---
Author Organization [facility] Address [address] [place] [address] Phone Care Team Providers Care Respiratory Care Technician Name Role Phone Tiago Mason MD Primary Care Provider [phone] Darrin Moyer MD Unavailable Reason for Visit * Reason Onset Date Comments Leg Pain 04/12/2024 Encounter Details Date Type Department Care Team (Late st Contact Info) Description 04/12/[address] [place] [address] Darrin Moyer MD [address] [place] [address] [place] [address] Leg Pain Social History Tobacco Use Types [...] Description 04/21/2025 1:45 PM CDT Office Visit [facility] [address] [place] [address] Darrin Moyer MD [address] [place] [address] [address] [place], [place] [address] documented as of this encounter Visit Diagnoses Not on filedocumented in this encounter Care Teams Respiratory Care Technician Relationship Specialty Start Date End Date Tiago Mason MD [address] [place] [address] PCP - General Internal Medicine 04/10/23 Darrin Moyer MD [address] [place] [address] [address] [place], [place] [phone] Consulting Physician Oncology 06/17/23 documented as of this encounter
--- NOTE | 2025-02-07 12:04 | WPDHPUPDATE1 ---
History and Physical Update Update Date/Time: 02/07/25 12:04 History and Physical has been reviewed, including an updated exam of the patient. There are NO changes in the patient's condition. Risks, benefits, and alternatives have been discussed and questions answered. Patient agrees to proceed with procedure.
[2025-02-07] MEDS: ACETAMINOPHEN 500 MG TABLET 1000 MG PO (14:00)
[2025-02-07] MEDS: TRANEXAMIC ACID 1,000MG/ISO100 1,000 MG/100 ML BAG 200 MG IVPB (14:00)
[2025-02-07] MEDS: LACTATED RINGERS 1,000 ML 30 ML IV CONT ×2 (14:00→17:12)
--- NOTE | 2025-02-07 14:01 | P.PNAN_ITS ---
Anes - Initial Pre Proc Eval Procedure: Operation Date: 02/07/25 14:30 Proposed Procedures p Left Custom Total Knee Arthroplasty - Cole Milner MD Date/Time: 02/07/25 14:01 Surgeon: Cole Milner MD Pre Op Diagnosis: primary OA left knee Patient Data Age: 69 Gender: F Height: 1.68 m Weight: 99.3 kg Last Vital Signs Temp 36.7 C 01/12/25 10:52 Pulse 73 01/12/25 10:52 Resp 18 01/12/25 10:52 BP 139/73 01/12/25 10:52 Pulse Ox 99 01/12/25 10:52 O2 Del Method Room Air 01/12/25 10:52 Allergies Allergy/AdvReac Type Severity Reaction Status Date / Time levofloxacin (From [facility]) Allergy Unknown Itching Verified 01/12/25 10:05 Home Medications ?Medication ?Instructions ?Recorded ?Confirmed ?Type alendronate 70 mg tablet 70 mg PO WEEKLY 10/27/24 01/12/25 History biotin 5,000 mcg sublingual tablet 5,000 mcg sublingual DAILY 10/27/24 01/12/25 History calcium carbonate (Calcium 600) 600 mg PO DAILY 10/27/24 01/12/25 History cholecalciferol (vitamin D3) 50 50 mcg PO DAILY 10/27/24 01/12/25 History mcg (2,000 unit) capsule exemestane 25 mg tablet 25 mg PO DAILY 10/27/24 01/12/25 History melatonin 1 mg tablet 1 mg PO QHS 10/27/24 01/12/25 History acetaminophen 650 mg 650 mg PO PRN PRN pain 01/12/25 01/12/25 History tablet,extended release (8 Hour Pain Reliever) amlodipine 5 mg tablet 5 mg PO DAILY 01/12/25 01/12/25 History celecoxib 200 mg capsule (Celebrex) 200 mg PO DAILY 01/12/25 01/12/25 History cyanocobalamin (vitamin B-12) 1,000 mcg PO DAILY 01/12/25 01/12/25 History 1,000 mcg capsule hydrochlorothiazide 25 mg tablet 25 mg PO DAILY 01/12/25 01/12/25 History losartan 100 mg tablet 100 mg PO DAILY 01/12/25 01/12/25 History multivitamin (Daily Multi-Vitamin 1 tablet PO DAILY 01/12/25 01/12/25 History tablet) potassium 99 mg tablet 99 mg PO DAILY 01/12/25 01/12/25 History tamoxifen 20 mg tablet 20 mg PO DAILY 01/12/25 01/12/25 History vitamin E 268 mg (400 unit) capsule 804 mg PO DAILY 01/12/25 01/12/25 History aspirin 81 mg tablet,delayed 81 mg PO BID 14 days #28 tabs 02/07/25 Rx release oxycodone-acetaminophen 5 mg-325 1 - 2 tablet PO Q4-6H PRN pain 7 02/07/25 Rx mg tablet days #30 tabs prednisone 5 mg tablet 5 mg PO DAILY 3 weeks #21 tabs 02/07/25 Rx Laboratory Tests 02/07/25 13:38 Blood Type Pending Antibody Screen Pending Patient hx anesthesia problems: none Family hx anesthesia problems: none Results Review: All pre-operative results and documents have been reviewed as part of the pre- operative evaluation. [facility] Past Medical History Medical History History of right breast cancer Vitamin D deficiency Primary insomnia Osteoporosis, postmenopausal Osteoarthritis of right shoulder Osteoarthritis of knees, bilateral Osteoarthritis, hip, bilateral Osteoarthritis of right foot Exogenous obesity Sleep apnea, obstructive Menopausal symptom Intervertebral disc degeneration Hypertension, essential, benign Allergic rhinitis Complex tear of medial meniscus of left knee Surgical History Surgical History History of partial mastectomy of right breast (~05/29/23) History of meniscectomy of left knee 01/2013 Family History Family History Unknown Hypertension Diabetes mellitus Cancer Social History Social History Smoking status: Never smoker Alcohol intake: never Substance use: never Anes - Eval Final PreProcedure Day of Procedure 02/07/25 14:01 Patient weight: obese Heart: regular rate and rhythm Lungs: clear to auscultation Airway: Mallampati scale class II Neurological: alert and oriented Last oral intake: >/= 8 hours ASA classification: III Emergent: no Anesthetic plan: proceed Anesthesia type and monitoring: general LMA and standard monitoring Results Review: All pre-operative results and documents have been reviewed as part of the pre- operative evaluation. Informed Consent: The patient's anesthetic plan and its attendant risks and benefits were discussed with the patient/family/POA. Questions were solicited and answers provided to the satisfaction of the patient/family/POA.
[2025-02-07] MEDS: ceFAZolin 2 GM/D5W 50 ML 2 GM/50 ML BAG IVPB ×2 (15:09→21:08)
[2025-02-07] MEDS: SODIUM CHLORIDE 0.9% IV 37.7 ML, MORPHINE SULFATE INJ (*CRX) 2 MG, ROPivacaine HCL 1% 2... INFILTRATE (15:48)
--- NOTE | 2025-02-07 17:11 | W.PM.PROC2 ---
Procedure Note - Detailed Date of Procedure 02/07/25 Pre-op Diagnosis Left knee degenerative arthritis. Post-op Diagnosis Same Procedure Performed Total knee arthroplasty, left custom Surgeon Cole Milner MD Fill Plant Operator Laquita Jewell PA-C Anesthesia General and Regional (Subsartorial block.) Findings Custom knee optimal fit. Fair bone quality. Description of Procedure Preoperative antibiotics were given. The limb was prepped and draped in the usual sterile fashion with a well-padded tourniquet high on the thigh. The limb was exsanguinated and the tourniquet inflated to 300 mmHg. A longitudinal incision was created just medial to the patella. A trivector approach to the knee was performed. Arthrotomy was taken down through the joint capsule. No significant releases were initially taken. The femur was exposed and the F1 jig was applied. The coring tool was used to remove the cartilage for the F2 jig to sit flush with the bone. The jig was pinned and the distal cut carefully taken. Caliper measurements confirmed appropriate bony resections according to the preoperative templated plan. The F4 cutting jig for the femur was applied, at the standard rotation. The AP and anterior chamfer cuts were taken. The F5 jig was applied and the posterior chamfer cuts were taken. The tibia was prepared using the T1 jig, after removing cartilage for the jig contact points. Proper alignment was checked with the alignment nazia. The tibia was cut using the T1u guide. Gap balancing was performed. Gap measurements were taken and the knee was trialed. Excellent alignment and soft tissue balancing was confirmed. The posterior cruciate ligament was not released. A lateral facetectomy was at the patella with denervation. Meniscal remnants were removed. The trial components were assembled. Excellent range of motion and proper soft tissue balancing were confirmed throughout the full range of motion. Patellar tracking was excellent. The knee was copiously irrigated periodically throughout the procedure. The real implants were cemented into position. Excess cement was carefully removed. The wound was closed in layers with interrupted #1 Vicryl suture, 2-0 strata fix suture, 0 strata fix suture, 2-0 strata fix suture. Steri-Strips placed on the skin with the knee flexed. Sterile bulky dressing applied. The patient was brought to the recovery room in stable condition. There were no complications. Physician administrative assistant data entry, Laquita Pisarski, PA-C, required for surgery; including patient positioning, draping, tissue retraction, maintaining instrument position, wound closure, and dressing placement. Implants Conformis Custom total knee arthroplasty. Cemented. Cruciate retaining. 8B insert. Estimated Blood Loss 20 Drains No Complications No immediate complications Condition Stable Disposition PACU [facility] Billing Surgery - Charge Forward: Surgery Billing
[2025-02-07] MEDS: fentaNYL CITRATE INJ (*CRX) 100 MCG/2 ML VIAL 25 MCG IV PUSH ×4 (17:25→17:51)
--- NOTE | 2025-02-07 19:31 | ADMGEN ---
This patient, Ana Lilia Beckham, was admitted to [facility] Surg Room 327-01. Patient/family oriented to hospital policies and general routines including ID bracelet, bed and alarms, visiting hours, pain management, procedures, bathroom and other care routines, personal items, smoking policy, room service/diet, and visiting hours. Information on how to activate the Rapid Response Team has been discussed. Patient/Family are encouraged to report perceived risks to care and to ask questions if they do not understand what they are told or what they should do.
[2025-02-07] MEDS: SENNA/DOCUSATE SODIUM TABLET 2 TAB PO (21:06)
[2025-02-07] MEDS: ASPIRIN 81 MG ENTERIC TABLET PO (21:07)
[2025-02-07] MEDS: ACETAMINOPHEN 325 MG TABLET 650 MG PO (21:07)
[2025-02-07] MEDS: FAMOTIDINE 20 MG TABLET PO (21:07)
[2025-02-07] MEDS: oxyCODONE/ACETAMINOPHEN (*CRX) 5-325 MG TABLET 1 TABLET PO (21:43)
[2025-02-08 00:05] VITALS: BP 137/65; PULSE 94; RESP 20; TEMP 35.8; O2SAT 99
[2025-02-08 04:05] VITALS: BP 145/66; PULSE 88; RESP 20; TEMP 36.1; O2SAT 100
[2025-02-08] MEDS: oxyCODONE/ACETAMINOPHEN (*CRX) 10-325 MG TABLET 1 TAB PO (04:29)
[2025-02-08 06:33] LABS: Basophils Percent Auto 0.1 % (0.2-1.2); Eosinophils Percent Auto 0.1 % (0-4.4); Hematocrit 37.6 % (37.0-47.0); Hemoglobin 12.2 g/dL (12.0-15.0); Immature Granulocyte Absolute 0.05 K/mm3 (0.00-0.031); Immature Granulocyte Percent A 0.3 % (0-0.5); Lymphocytes Percent Auto 14.4 % (18.3-44.2); Mean Corpuscular HGB Conc 32.4 g/dl (32-36); Mean Corpuscular Hemoglobin 29.7 pg (26-34); Mean Corpuscular Volume 91.5 fl (80-100); Mean Platelet Volume 10.2 fl (7.4-10.4); Monocytes Absolute Auto 0.7 K/mm3 (0.1-0.6); Monocytes Percent Auto 4.5 % (2.6-8.5); Neutrophils Absolute Auto 12.3 K/mm3 (1.3-6.7); Neutrophils Percent Auto 80.6 % (45.5-73.1); Platelet Count Result 335 k/mm3 (150-375); Red Blood Count 4.11 M/mm3 (4.2-5.4); Red Cell Distribution Width 13.5 % (11.5-14.5); White Blood Count 15.3 K/mm3 (4.5-10.0)
[2025-02-08] MEDS: ceFAZolin 2 GM/D5W 50 ML 2 GM/50 ML BAG IVPB (06:45)
[2025-02-08 06:48] LABS: Anion Gap 10 mmol/L (4-12); Blood Urea Nitrogen 13 mg/dL (7-17); Calcium 9.1 mg/dL (8.4-10.2); Carbon Dioxide 21 mmol/L (22-30); Chloride 107 mmol/L (98-107); Estimated CRCL calculation 100 ml/min; Estimated Glomerular Filt Rate > 60; Glucose 136 mg/dL (65-110); Potassium 3.7 mmol/L (3.4-5.0); Sodium 138 mmol/L (137-145)
[2025-02-08 08:05] VITALS: BP 130/60; PULSE 80; RESP 20; TEMP 36.7; O2SAT 98
[2025-02-08] MEDS: oxyCODONE/ACETAMINOPHEN (*CRX) 5-325 MG TABLET 1 TABLET PO (09:21)
[2025-02-08] MEDS: ONDANSETRON INJ 4 MG/2 ML VIAL IV PUSH (09:21)
[2025-02-08] MEDS: TAMOXIFEN CITRATE (*CHEMO) 10 MG TABLET 20 MG PO (09:22)
[2025-02-08] MEDS: LOSARTAN POTASSIUM 100 MG TABLET PO (09:22)
[2025-02-08] MEDS: CELECOXIB 200 MG CAPSULE PO (09:22)
[2025-02-08] MEDS: SENNA/DOCUSATE SODIUM TABLET 2 TAB PO (09:22)
[2025-02-08] MEDS: polyethylene glycoL 3350 17 GM POWD.PACK PO (09:22)
[2025-02-08] MEDS: hydroCHLOROthiazide 25 MG TABLET PO (09:22)
[2025-02-08] MEDS: predniSONE 5 MG TABLET PO (09:23)
[2025-02-08] MEDS: ASPIRIN 81 MG ENTERIC TABLET PO (09:23)
[2025-02-08] MEDS: FAMOTIDINE 20 MG TABLET PO (09:23)
[2025-02-08] MEDS: amLODIPine BESYLATE 5 MG TABLET PO (09:23)
== END 2025-02-08 10:45 | disposition home or self-care (01) ==
LOC: ANHSURGERY 12:33 → ANH3MEDSUR 18:22
PROVIDERS: Physician Assistant Surgical; Visit Provider Orthopaedic Surgery
PROC: (CPT 27447; principal; 2025-02-07 14:30)
DX: M17.12 Unilateral primary osteoarthritis, left knee (principal); I10 Essential (primary) hypertension; E55.9 Vitamin D deficiency, unspecified; M81.0 Age-related osteoporosis without current pathological fracture; G47.30 Sleep apnea, unspecified; F51.01 Primary insomnia; M19.011 Primary osteoarthritis, right shoulder; M16.0 Bilateral primary osteoarthritis of hip; M19.071 Primary osteoarthritis, right ankle and foot; E66.9 Obesity, unspecified; Z68.34 Body mass index [BMI] 34.0-34.9, adult; Z79.83 Long term (current) use of bisphosphonates; Z79.1 Long term (current) use of non-steroidal anti-inflammatories (NSAID); Z79.82 Long term (current) use of aspirin; Z79.810 Long term (current) use of selective estrogen receptor modulators (SERMs); Z79.891 Long term (current) use of opiate analgesic; Z79.52 Long term (current) use of systemic steroids; Z98.890 Other specified postprocedural states; Z85.3 Personal history of malignant neoplasm of breast; Z80.9 Family history of malignant neoplasm, unspecified
CPT/HCPCS: 27447; 36415; 73560; 80048; 85025; 86850; 86900; 86901; 97110; 97161; 97165; A9270; C1713; C1776; J0171; J0690; J1100; J1171; J1885; J2003; J2250; J2270; J2405; J2704; J2795; J3010; J7120; J7512

== ENCOUNTER 2025-08-17 10:01 | Outpatient (CLI) | payer MEDICARE, SELFPAY ==
--- NOTE | ~2025-08-17 | CT_ITS ---
EXAMINATION: CT_STKSHORTWO_CT DATE: 08/17/2025 10:32 INDICATION: Right shoulder osteoarthritis. Preoperative planning. TECHNIQUE: High resolution computed tomography (CT) of the right shoulder was performed without intravenous contrast. Additional sagittal and coronal reconstructions were performed. Automated exposure control and iterative reconstruction technique were employed. The dose-length product was 196.53 mGy-c m. COMPARISON: None FINDINGS: Severe osteoarthritis at the right glenohumeral joint with subarticular cystic change along both the humeral head and glenoid most notable for large cyst underlying the anterosuperior glenoid extending to the base of the coracoid process. Large marginal osteophytes extending off the inferior aspect of the humeral head distending the axillary recess. No evidence of associated joint effusion. There are however large loose osteochondral bodies extending into the deep subscapular recess. Mild to moderate acromioclavicular osteoarthritis. Soft tissues are unremarkable with no asymmetric fatty atrophy of the rotator cuff muscles. Mild calcified pleural-parenchymal scarring at the right apex. No pathologically enlarged lymphadenopathy at the right axilla, right hilum or visualized portions of the right neck and mediastinum. IMPRESSION: 1. Severe right glenohumeral osteoarthritis. Reviewed, dictated and finalized at location A. ER POT
[2025-08-17 11:04] LABS: Hematocrit 37.4 % (37.0-47.0); Hemoglobin 12.1 g/dL (12.0-15.0)
[2025-08-17 11:25] LABS: Albumin Level 4.3 g/dL (3.5-5.1); Estimated Glomerular Filt Rate > 60
--- OUTSIDE RECORDS SUMMARY | 2025-08-18 09:52 | XMS_ITS | Data Portability ---
Author Organization [place] - [facility] Women' s [facility], EFF_Historical Results Address [address] [place] [address] Care Team Providers Care Performance Manager Name Role Phone BETO HUDSON Primary Care Provider Assessment Encounter Date Assessment Date Assessment LastModified by Organization Details LastModified Time 05/20/2025 05/20/2025 we will await vaginal cultures for further tx recommendations Pt would like referred to [facility]- referral sent Gave handout on pessarys and reviewed how to remove, clean and reinsert call office if unable to void or have BM Return in 2 weeks for evaluation of progress with pessary frieda Not available 05/21/2025 17:45:22 06/03/2025 06/03/2025 Call for any fou l odor or discharge. Call for any bleeding. Call for any difficulty with urination or bowel movements. Patient's questions were answered at today's visit. She voiced understanding of the plan and will follow up with the provider as planned. Continue with PFT Return in 3 months frieda Not available 06/03/2025 14:54:57 Plan of Treatment Reminders Order Date Submit Date Provider Last Modified By Organization Details Last Modified Time Details Appointments Pessary 20 2024 02:20P Becky CAMP APN Not available Not available Not available Lab unlisted lab - sureswab( R) adv bacterial vaginosis (bv), tma 2024 025 [facility], [address] [place], [address], 05/21/2025 11:34:10 unlisted lab - sureswab( R) adv anthony vaginitis (CV), tma 2024 025 [place] [facility], [address] [place] [address], [address], 05/21/2025 11:34:11 noninvasi ve colorecta l cancer DNA + occult blood screening , QL, stool 2023 024 [place] [facility], [address], [address], [place], [address], 08/16/2024 18:27:00 Referral None recorded. Procedures None recorded. Surgeries None recorded. Imaging None recorded. Medication Orders None recorded. Patient TargetsNo targets recorded. Patient InstructionsNo instructions recorded. Reason for Referral None Reported. Results Created Date Observation Date Name Description Value Unit Range Abnormal Flag Note LastModifiedBy Organization Detail LastModifiedTime 05/20/2005/21/2025 SURES WAB(R ) ADV BACTE RIAL VAGIN OSIS (BV), TMA sureswab(R) adv bacterial vaginosis (bv), tma NEGATI VE negati ve normal Not Available [address], [address], 05/21/2025 11:34:10 05/20/20 25 05/21/2025 SURES WAB(R ) ADV ALVA DA VAGIN ITIS (CV), TMA anthony species NOT DETECT ED not detect ed normal Not Available [address], [address], 05/21/2025 11:34:11 05/20/20 25 05/21/2025 SURES WAB(R ) ADV ALVA DA VAGIN ITIS (CV), TMA anthony glabrata NOT DETECT ED not detect ed normal Alva da speci es C. albic ans, C. tropi calis , C. parap diandra is, and/o r C. dubli niens is can be detec francisco, but not diffe renti ated, in the Alva da spp. resul t. Not Available [facility] [address] [place], [address], 05/21/2025 11:34:11 12/07/1907/14/2020 imagi ng/di agnos tic resul t [...] ation record ed. Not Available 12/07/2024 12:56:14 05/19/2005/19/2025 mg scree robert W loi pedro luis digi This is a summar y report . The comple te report is availa ble in the patirosas t's medica l record . If you cannot access the medica l record , please contac t the jose villalba for a detail ed fax or copy. [facility] Women' [facility] [address] [place] [address] Examin ation: Screen ing bilate ral mammog esteban Exam Date: 05/19/20 9:11 AM Access ion: [id number] Clinic al histor y: Screen ing. Histor y of right breast malign malissa and histor y of right malign ant lumpec nallely and radiat ion. Compar ritika: Previo us mammog esteban perfor med May 2024, Octobe r 2021. Dio t had MRI of the breast s in 2022. Techni que: Digita l screen ing mammog nehal of both breast s was perfor med. Breast tomosy nthesi s acquis itions were obtain ed and review ed. This study was read with the assist ance of a comput er-aid ed detect ion system . Tissue densit y: The breast s are hetero geneou sly dense, which may obscur e small masses . Findin gs: No suspic ious masses , malign ant appear ing calcif icatio ns, skin thicke robert or other abnorm alitie s are presen t. There are stable posttr eatmen t findin gs in the right breast . There are no new densit ies. Benign findin gs with comput er-ass isted softwa re. Few scatte red benign calcif icatio ns. No signif icant change from the prior exam. Consid ering the degree of the breast densit y and patien t's person al histor y of breast malign malissa the patien t will benefi t from contin ued supple mental screen ing with MRI breast s. IMPRES PATRICIA: No suspic ious mammog raphic findin gs. Recomm endati on: 1. Routin e Screen ing, Bilate ral Assess ment: ACR BI-RAD S 2 - BENIGN FINDIN G(S) Ordere d By: SAMANTHA BUSBY I Electr onical ly Signed By: Sergey Esparza MD on 05/19/20 11:06 AM Interp reted By: Sergey Esparza MD, 05/19/20 11:03 AM [facility] [address] [facility], [place], [address], 05/20/2025 14:08:19 05/20/2005/20/2025 , bladd er No observ ation record ed. [email or web address] [facility] [address], [place], [address], 05/20/2025 11:08:15 Result Notes None recorded. Problems Name Problem SNOMED Code Status Onset Date Resolution Date Notes Provider Name and Address Organization Details Recorded Time Fibrocystic disease of breast 00038518 Active 2024 Kemi cardona, [place] [facility] 5 09:44:16 Osteopenia 420287394 Active 2024 Kemi cardona, [place] [facility] 5 09:44:27 History of malignant neoplasm of breast 677201111 Active 2024 Kemi Robert null, [facility] 5 09:45:04 Obesity 220989966 Active 2024 Kemi Robert null, [facility] 5 09:45:18 Family history of breast cancer 170841628 Active 2024 sister, maternal aunt Kemi cardona, [facility] 5 09:49:13 Problem Notes None recorded. Procedures Surgical History Date Name Laterality Status Provider Name and Address Organization Details Recorded Time 06/03/20 EFF Pessary Check completed MICHEL CAMP APN [address] [place], [address], [place] [facility] 06/03/2025 14:54:00 05/20/20 EFF Pessary Fitting completed MICHEL CAMP APN [address] [place], [address], [facility] 05/21/2025 17:42:50 05/19/20 25 Date of Last Mammogram completed Kelsey Oscar [facility] 05/19/2025 12:21:20 02/08/20 25 arthroplasty of knee completed Carolina Castellon [facility] 05/20/2025 10:23:13 05/13/20 23 lumpectomy of right breast completed [facility] 07/23/2024 09:53:26 07/30/20 21 dual energy X-ray absorptiometry completed [facility] 07/20/2024 11:56:06 07/12/20 19 Date of Last Pap Smear completed [facility] 07/20/2024 12:19:03 10/13/19 10 Colonoscopy completed [facility] 07/20/2024 11:55:32 Imaging Results None recorded. Procedure [...] t Available hydrochloroth iazide 25 mg tablet 05/20 completed Not Available Not Available Not Available losartan 100 mg tablet 05/20 completed Not Available Not Available Not Available mometasone 0.1 % topical cream 07/22 completed Not Available Not Available Not Available amoxicillin 875 mg-potassium clavulanate 125 mg tablet 07/22 completed Not Available Not Available Not Available cyclobenzapri ne 5 mg tablet active Not Available Not Available Not Available tamoxifen active Not Available Not Lexy ilable Not Available Tylenol 8 Hour active Not Available Not Available Not Available levocetirizin e 5 mg tablet 07/22 completed Not Available Not Available Not Available calcium 1,000 mg (as carbonate)-vi tamin D3 20 mcg (800 unit) tablet Take by oral route. active Not Available Not Available No t Available Vitals Date Recorded Body height Body mass index (BMI) Body weight Systolic And Diastolic Provider Name and Address Organization Details Last Updated DateTime 05/20/2025 165.1 cm 35.6 kg/m2 49932.77 g 126/82 mm[Hg] Carolina Castellon [place] [facility] 05/20/2025 10:30:03 Date Recorded Body height Body mass index (BMI) Body weight Systolic And Diastolic Provider Name and Address Organization Details Last Updated DateTime 06/03/2025 165.1 cm 35.8 kg/m2 46395.36 g 128/68 mm[Hg] Joslyn Gonzalez [facility] 06/03/2025 14:39:50 Date Recorded Body height Body mass index (BMI) Body weight Systolic And Diastolic Provider Name and Address Organization Details Last Updated DateTime 07/23/2024 165.1 cm 35.8 kg/m2 95490.36 g 122/78 mm[Hg] Jonathan Mcconnell [place] [facility] 07/23/2024 09:49:30 Social History Question Answer Notes LastModified by Organizat ion Details LastModified Time Tobacco Smoking Status Never Smoker [facility] 07/20/2024 11:56:36 What Is Your Level Of Caffeine Consumption? Occasional [email or web address] Information not available 07/20/2024 What Type Of Diet Are You Following? REGULAR [email or web address] Information not available 07/23/2024 Have There Been Any Changes To Your Family Or Social Situation? No [email or web address] Information no t available 07/23/2024 What Is The Highest Level Of School You Have Completed Or The Highest Degree You Have Received? Some College [email or web address] Information not available 07/20/2024 How Do You Identify Yourself? Heterosexual [email or web address] Information not available 07/23/2024 What Is Your Ethnicity? [email or web address] Information not available 07/23/2024 What Was The Date Of Your Most Recent Tobacco Screening? 05/20/2025 [email or web address] Information not available 05/20/2025 What Is Your Relationship Status? [email or web address] Information not available 07/20/2024 Are There Any Smokers In Your House? No [email or web address] Information not available 07/23/2024 Sex: Female Functional Status Question Answer Note LastModified by Organizat ion Details LastModified Time Do you use any illicit or recreational drugs? No [email or web address] Information not available 07/20/2024 Do you or have you ever used any other forms of tobacco or nicotine? No [email or web address] Information not available 07/20/2024 What is your level of alcohol consumption? Occasional [email or web address] Information not available 07/20/2024 Are you currently employed? No [email or web address] Information not available 07/23/2024 What is your occupation? Retired [email or web address] Information not available 07/23/2024 What is your exercise level? Heavy [email or web address] Information not available 07/20/2024 Mental Status None recorded. Family History Relationship Description Onset Age of this Age Resolved Age Notes LastModified by Organization Details LastModified Time Sister Family history of breast cancer [email or web address] Not available 07/20 11:57:59 Maternal Aunt Family history of breast cancer [email or web address] Not available 07/20 11:57:59 Father Family history of diabetes mellitus [email or web address] Not available 07/20 11:58:23 Father Family history of coronary arterioscler osis Not available 07/20 12:01:14 Medical History Condition Response Allergies (Food, seasonal, environmental ) N Other Y Thyroid Disease N Cancer Endometrial N Blood Transfusion N Cancer Breast Y Migraines N GI Problems N Depression N Lung Disease N Hematologic (Blood) Disorder N Eating Disorder N Gestational Diabetes N Anemia N Psychiatric Disorder N Thrombophilia N Cancer Colon N Anxiety Disorder N Diabetes N Cancer Other N Arthritis N Cancer Uterine N Acid Reflux (GERD) N Stroke N Asthma N Polycystic Ovary Syndrome (PCOS) N Endometriosis N High Cholesterol N Neurologic Disorder N Defects N Liver Disease N Cancer Ovarian N Heart Disease N Fibromyalgia N Deep Vein Thrombosis (DVT) or Pulmonary Embolism (PE) N Hypertension N Osteoporosis N Kidney Disease N Autoimmune Disease N Gynecological History Statement/Question Response Abnormal Pap N If Post Menopausal, Age at Menopause 54 Date of Last Colonoscopy Date of Last Mammogram 05/19/2025 Sexually Active? Y Post Menopausal Bleeding N [...] Diagnosis SNOMED-CT Code Diagnosis ICD10 Code Diagnosis IMO Codes Diagnosis Note [id number] EITAN GUTIERREZ MD [facility] [address] [place] [address] 07/23/2024 09:37:41 07/23/2024 10:56:14 Screening for malignant neoplasm of colon 952668693 Z12.11 Routine gy necologic examination done 6391358997 9101 Z01.419 no excavating machine operator bleedingno oral HRT since contraindi catedpap not [...] prn. History of malignant neoplasm of breast 287637372 Z85.3 lump found on previous annual exam. S/P lumpectomy on right with radiation. Now seeing Dr. Moyer. previous medication had ill side effects so he started her on tamoxifen yesterday. . Mammogram done this May was wnl Osteopenia 043836548 M85 .80 Dr. Moyer is performing DEXA scans and has her on fosfamax. She is taking calcium and vit. D. Also, encourage weight bearing exercise. Family his tory of breast cancer 065231904 Z80.3 pt's sister and maternal aunt have breast cancer; Pt. has been tested for genetic component to her breast cancer and testing was negative. Obese class II 063364288 1 17548 E66.812 has gained 9# since last visit; mobility limited by bone on bone in her knee; she gets injections in her kneeencour aged weight loss with healthy diet and exercisept . may address weight loss drugs with her pcp Cystocele 353351106 N81. 10 pt. states it is asymptomat ic and declines interventi on Skin lesion 05659892 L98 .9 patient has multiple benign appearing skin lesions predominan tly over her trunk; she sees derm every 6 months. [id number] MD SILVINO ATKINSON[facility] [address] [place] [address] 05/20/2025 10:08:36 05/23/2025 14:30:40 Vaginal odor 408010533 N89.8 [id number] Pelvic yolette or dysfunction 209013176 M62.89 [id number] Midline cystocele 491880 003 N81.11 [id number] [id number] CAROLEE SANTAMARIA MD [facility] [address] [place] [address] 06/03/2025 14:25:34 06/03/2025 15:41:46 Incomplete uterovaginal prolapse 620168347 N81.2 76444 Pessary care 172132233 Z 46.89 130092 Health Concerns Section Related Observation LastModified by Organization Detai ls LastModified Time None Recorded Concern Status LastModified by Organization Details LastModified Time None Recorded Advance Directives Directive None Recorded Payers Insurance Date Sequence Insurance Name Policy Number Policy Tran Covered Member ID Tran Member ID Guarantor Name 07/05/2025 2 [place] [id number] Ana Lilia Beckham [id number] Ana Lilia Beckham 07/21/2024 1 [place] Ana Lilia Beckham [id number] Ana Lilia Pruittafreyna 07/05/2025 1 [place] Ana Lilia Beckham [id number] Ana Lilia Beckham 05/23/2025 [place] N[place] - [facility] Ana Lilia Beckham [id number] Ana Lilia Beckham Notes Date Note Type Note Provider Name and Address Organization Details Recorded Time 4 text/html Annual GYNReported by PatientHistoryFor history, patient reportsobstetric history: g2 t__ p__ a__ l__ (2),date of last pap test (07/12/2019 normal/-hr hpv), andfamily history of cancer (breast-maternal aunt, sister, and patient).Genitourinary symptomsFor vulva, patient reportsno genital lesion. For vagina, patient reportsnormal vaginal discharge. For urinary symptoms, (postmenopausal).Breast symptomsFor breast, patient reportsno breast pain,no breast lump, andno nipple discharge.Contraception For current contraception, patient reportspartner had vasectomy.Endocrine symptomsFor sexual complaints, patient reportsno sexual complaints,no pain during intercourse, andnormal libido. For menopausal symptoms, patient reportsno menopausal symptomsandnormal vaginal lubrication.Psychologic al symptomsFor psychological symptoms, patient reportsno depression,no anxiety, andno pmdd.ROS as noted in the HPI Onset of sexual activity before age 16? No Five or more sexual partners in lifetime? No History of STI (including HPV)? No Have had 3 or more abnormal paps in the past 7 years: No Mother took SHILA(diethylstilbestrol ) during with her? No If answering yes to any questions use the code Z91.89 (high risk for cervical cancer) and continue to screen with annual pap EITAN GUTIERREZ MD [address] [place] [address], [address], [facility] - [facility] 07/23/2024 10:38:10 5 text/html Pelvic ProlapseReported by PatientHPIFor severity, patient reportsinterferes with normal activities. For associated symptoms, patient reportsincomplete emptying of bladder,urinary frequency, andconstipationbut reportsno feeling of uterus falling out,no feeling of uterus falling out when lifting or coughing,no suprapubic pain,no urinary urgency,no dysuria,no post-void dribbling,no stress incontinence,no urge incontinence,no vaginal discharge,no unexplained vaginal bleeding,no abdominal pain,feeling of complete evacuation of stool,can pass stool without need for finger pressure in the vagina,(normal) unable to restrain bowel movement,no finger disimpaction needed, andno fecal incontinence. For location, patient reportsbladder. For quality, patient reportspelvic pressure,feeling of something bulging from vagina,swelling, andincreasing in size. For duration, patient reportspresent <1 month,progressively worse over weeks, andstarted weeks ago. For onset/timing, patient reportsbecomes worse as the day goes on. For aggravating factors, patient reportslifting,standing , andcoughing. For alleviating factors, patient reportsafter sleep,rest, andrelieved with supine position. Pt reports she can feel a vaginal bulge protruding when she sits on the toilet. Onset 3 weeks . Also has to double void to get all the urine out. She has a pessary at home and states its uncomfortable. It does not stay in and has caused irritation. Reports a foul vaginal odor at times. Has hx of breast cancer. Her prolapse is affecting her QOL and she would like to try a different size perhaps. She is sexually active. Going on vacation soon and wanting to do something for this today. She has never went to PFT for her pelvic floor dysfunction MICHEL CAMP APN [address] [place], [address], [facility] 05/21/2025 17:47:53 5 text/html ROS as noted in the HPI Patient presents for pessary cleaning and reinsertion. She is currently using a ring with support pessary, #6 of pessary.She denies vaginal discharge. She denies urinary problems. She denies bowel problems.Pt reports she has removed pessary once since insertion. She states she has actullay been able to void and have BM's without difficulty now. Denies vagianl bleeding MICHEL CAMP APN [address] [place], [address], [facility] 06/03/2025 14:55:53 OBGyn Episode Ob Episode Information Episode Created Date Number of Fetuses Patient Bloodtype Patient rh Status Prepregnancy Weight lbs Domestic Partner Domestic Partner Phone Father Name Silver Recovery Operator Status 07/20/20 24 1 CLOSED Fetus Data First Name Last Name Admitted to NICU Weight (g) Sex Living Outcome Pediatric Complications Fetus ID Race Codes Race Delivery Type 3543.46 0704 M Full Term [id number] Vaginal Yamil Calculation Initial Yamil Date Initial [...] Domestic Partner Domestic Partner Phone Father Name Silver Recovery Operator Status 07/20/20 24 1 CLOSED Fetus Data First Name Last Name Admitted to NICU Weight (g) Sex Living Outcome Pediatric Complications Fetus ID Race Codes Race Delivery Type 4139.02 7 M Full Term [id number] Vaginal Yamil Calculation Initial Yamil Date Initial [...] Date Comments 8 Regional-Ep idural 40 false [place] Discharge Information Feeding Method Contraceptive Method Maternal HG B and HCT Levels
--- OUTSIDE RECORDS SUMMARY | 2025-08-18 09:52 | XMS_ITS | Clinical Summary ---
Author Organization [facility] Address [address] [place] [address] Phone Care Team Providers Care Associate Professor Of Theatre Name Role Phone Tiago Mason MD Primary Care Provider [phone] Darrin Moyer MD Unavailable Allergies Active Allergy [...] mouth. Active alendronate (FOSAMAX) 70 MG Tablet TAKE 1 TABLET BY MOUTH EVERY 7 DAYS. 12 Tablet 6 01/17/2025 Active tamoxifen citrate 20 MG Tablet Take 1 Tablet by mouth daily 60 Tablet 6 04/21/2025 Active Active Problems Problem Noted Date Diagnosed Date HTN (hypertension) 01/20/2025 Malignant neoplasm of upper- inner quadrant of right breast in female, estrogen receptor positive 07/23/2023 Abnormal magnetic resonance imaging of right alycia ast 05/01/2023 Encounters Date Type Department Care Team Description 08/16/2025 Telephone [facility] [address] [place] [phone] Margarette Olmos, GRACIELA, PATIENT SERVICE SPECIALIST dexa results 07/14/2025 1:00 PM CDT Office Visit [facility] [address] [place] [phone] Margarette Olmos, GRACIELA, PATIENT SERVICE SPECIALIST Malignant neoplasm of upper-inner quadrant of right breast in female, estrogen receptor positive (Primary Dx); Family history of breast cancer gene mutation in first degree relative; Family history of prostate cancer; Osteopenia determined by x-ray; Dense breast tissue on mammogram, unspecified type; Aromatase inhibitor-associated arthralgia; Hot flash due to medication 07/14/2025 Travel from Last 3 Months Immunizations Immunization [...] Sign Reading Time Taken Comments Blood Pressure 122/82 07/14/2025 1:08 PM CDT Pulse 86 07/14/2025 1:08 PM CDT Temperature 36.6 C (97.8 F) 07/14/2025 1:08 PM CDT Respiratory Rate 16 07/14/2025 1:08 PM CDT Oxygen Saturation 97% 07/14/2025 1:08 PM CDT Inhaled Oxygen Concentration - - Weight 95.3 kg (210 lb 1.6 oz) 07/14/2025 1:08 P M CDT Height 167.6 cm (5' 6) 07/14/2025 1:08 PM CDT Body Mass Index 33.91 07/14/2025 1:08 PM CDT Plan of Treatment Upcoming Encounters Date Type Department Care Team (Late st Contact Info) Description 01/12/2026 1:15 PM CDT Office Visit [facility] [address] [place] [address] Darrin Moyer MD [address] [place] [address] [place] [address] Health Maintenance Due Date Last Done Comments Hepatitis C Virus (HCV) Screening 1955 Pneumococcal Immunization (50+ years) (1 of 2 - PCV) 1975 Cologuard 2001 Colonoscopy 2001 Colorectal Cancer Screening 2001 Immunochemical Fecal Occult Blood 2001 Respiratory Syncytial Virus (RSV) Immunization (Adult) (1 - Risk 50-74 years 1-dose series) 2006 Medicare Initial AWV G0438 12/11/2022 Influenza Immunization (#1) 06/13/20250 06/2024, 08/28/2023, 07/30/2022, Additional history exists SARS-COV-2 Immunization ( season) 2025 09/12/2021, 01/03/2021, 12/06/2020 Mammogram 05/19/2026 05/19/2025, 080 04/2025, 05/19/2024, Additional history exists DEXA Bone Density 08/16/2027 08/16/2025, , 07/30/2021 Zoster Immunization Completed 05/13/2018, 8 DTaP/Tdap/Td Immunization Discontinued 06/05/2025 TdaP Immunization Completed 06/05/2025 Hepatitis B Immunization Aged Out No longer eligible based on patient's age to complete this topic Human Papillomavirus (HPV) Immunization Aged Out No longer eligible based on patient's age to complete this topic Meningococcal Immunization (ACWY) Aged Out No longer eligible based on patient's age to complete this topic Rotavirus Immunization Aged Out No lo nger eligible based on patient's age to complete this topic Procedures Procedure Name Priority Date/Time Associated Diagnosis Comments AIMEE BONE DENSITOMETRY AXIAL SKELETON Routine 08/16/2025 Malignant neoplasm of upper-inner quadrant of right breast in female, estrogen receptor positive Family history of breast cancer gene mutation in first degree relative Family history of prostate cancer Osteopenia determined by x-ray Dense breast tissue on mammogram, unspecified type Aromatase inhibitor-associated arthralgia Hot flash due to medication CMP (COMPREHENSIVE METABOLIC PANEL) Routine 07/11/2025 CANCER ANTIGEN (CA) 15-3 Routine 07/11/2025 CMP (COMPREHENSIVE METABOLIC PANEL) Routine 07/11/2025 CBC WITH AUTO DIFF OH Routine 07/11/2025 from Last 3 Months Results * AIMEE BONE DENSITOMETRY AXIAL SKELETON (08/16/2025) Anatomical Region Laterality Modality BODY N/A Other us Margarette Olmos GREETING CARD EDITOR, PATIENT SERVICE SPECIALIST IMG DEXA ORDERABLES Mariangel l Result * CBC WITH AUTO DIFF OH (07/11/2025) us Darrin Moyer MD LAB SEND OUTS Final Result * CMP (COMPREHENSIVE METABOLIC PANEL) (07/11/2025) Only the most recent of2 resultswithin the time period is included. Blood us Darrin Moyer MD CHEMISTRY ORDERABLES Final Resul t * CANCER ANTIGEN (CA) 15-3 (07/11/2025) Blood us Darrin Moyer MD CHEMISTRY ORDERABLES Final Resul t from Last 3 Months Insurance MEDICARE [facility] Care Teams Associate Professor Of Theatre Relationship Specialty Start Date End Date Tiago Mason MD [address] [place] [address] PCP - General Internal Medicine 04/10/23 Darrin Moyer MD [address] [place] [address] [place] [address] Consulting Physician Oncology 06/17/23
== END 2025-08-17 10:02 | disposition home or self-care (01) ==
PROVIDERS: Visit Provider Orthopaedic Surgery
DX: M19.011 Primary osteoarthritis, right shoulder (principal); E55.9 Vitamin D deficiency, unspecified; Z01.818 Encounter for other preprocedural examination
CPT/HCPCS: 36415; 73200; 82040; 82565; 85014; 85018